=== PATIENT | male | born 1945 | race Caucasian/White ===

== ENCOUNTER 2016-10-22 15:16 | Emergency (ER) | payer MEDICARE ==
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
--- NOTE | 2016-10-22 16:02 | RADIOLOGY REPORT (SQ) ---
EXAM DESCRIPTION: CHEST SINGLE VIEW COMPLETED DATE/TIME: 10/22/2016 3:52 pm REASON FOR STUDY: sob COMPARISON: 03/08/2014 EXAM PARAMETERS: NUMBER OF VIEWS: One view. TECHNIQUE: Single frontal radiographic view of the chest acquired. RADIATION DOSE: NA LIMITATIONS: None. FINDINGS: LUNGS AND PLEURA: A limited infiltrate cannot be excluded in the right base. MEDIASTINUM AND HILAR STRUCTURES: No masses. Contour normal. HEART AND VASCULAR STRUCTURES: Heart normal in size. Normal vasculature. BONES: No acute findings. HARDWARE: None in the chest. OTHER: No other significant finding. IMPRESSION: Cannot exclude limited infiltrate in the right base. Is there a history of bronchiectas is? TECHNICAL DOCUMENTATION: JOB ID: [id number]
[2016-10-22 16:56] LABS: ABSOLUTE LYMPHOCYTES (AUTO) 1.4 10^3/uL (0.5-4.7); ABSOLUTE MONOCYTES (AUTO) 0.5 10^3/uL (0.1-1.4); BASOPHILS % (AUTO) 0.4 % (0-2); EOSINOPHILS % (AUTO) 0.2 % (0-6); HEMATOCRIT 42.5 % (37.9-51.0); HEMOGLOBIN 14.7 g/dL (13.5-17.0); HGB HCT DIFFERENCE 1.6; LYMPHOCYTES % (AUTO) 13.8 % (13-45); MEAN CORPUSCULAR HEMOGLOBIN 31.4 pg (27.0-33.4); MEAN CORPUSCULAR HGB CONC 34.5 g/dL (32.0-36.0); MEAN CORPUSCULAR VOLUME 91 fl (80-97); MONOCYTES % (AUTO) 5.3 % (3-13); RED BLOOD COUNT 4.67 10^6/uL (4.35-5.55); RED CELL DISTRIBUTION WIDTH 14.1 % (11.5-14.0); SEGMENTED NEUTROPHILS % (AUTO) 80.3 % (42-78)
[2016-10-22 16:59] LABS: VENOUS BLOOD BASE EXCESS 1.6 mmol/L; VENOUS BLOOD HCO3 27.4 mmol/L (20-32); VENOUS BLOOD PCO2 47.2 mmHg (35-63); VENOUS BLOOD PH 7.38 (7.30-7.42)
[2016-10-22 17:02] LABS: PROTHROMBIN TIME 13.1 SEC (11.4-15.4)
[2016-10-22 17:17] LABS: ALANINE AMINOTRANSFERASE 23 U/L (21-72); ALKALINE PHOSPHATASE 86 U/L (38-126); ANION GAP 9 (5-19); ASPARTATE AMINO TRANSFERASE 19 U/L (17-59); BILIRUBIN,DIRECT 0.3 mg/dL (0.0-0.4); BILIRUBIN,TOTAL 0.6 mg/dL (0.2-1.3); BLOOD UREA NITROGEN 16 mg/dL (7-20); CALCIUM 9.4 mg/dL (8.4-10.2); CARBON DIOXIDE 26 mmol/L (22-30); CHLORIDE 104 mmol/L (98-107); CREATINE KINASE 127 U/L (55-170); CREATININE RESULT 0.92 mg/dL (0.52-1.25); GLUCOSE 111 mg/dL (75-110); POTASSIUM 4.2 mmol/L (3.6-5.0); SODIUM 138.7 mmol/L (137-145); TOTAL PROTEIN 6.8 g/dL (6.3-8.2)
--- NOTE | 2016-10-22 17:17 | RADIOLOGY REPORT (SQ) ---
EXAM DESCRIPTION: CT HEAD WITHOUT COMPLETED DATE/TIME: 10/22/2016 5:05 pm REASON FOR STUDY: ams COMPARISON: 10/18/2012 TECHNIQUE: Axial images acquired through the brain without intravenous contrast. Images reviewed wi th bone, brain and subdural windows. Images stored on PACS. All CT scanners at this facility use dose modulation, iterative reconstruction, and/or weight based d osing when appropriate to reduce radiation dose to as low as reasonably achievable (ALARA). [facility]: Dose Right [facility]: CareDose [facility]: Dose Right [facility]: Teradose 4D [facility]: Smart [employer] RADIATION DOSE: Up-to-date CT equipment and radiation dose reduction techniques were employed. CTDIv ol: 64.6 mGy. DLP: 1163 mGy-cm. mGy. LIMITATIONS: None. FINDINGS: VENTRICLES: Prominent. CEREBRUM: No masses. No hemorrhage. No midline shift. Areas of low density in the white matter mos t likely due to chronic micro-vascular ischemic change. No evidence for acute infarction. CEREBELLUM: No masses. No hemorrhage. No alteration of density. No evidence for acute infarction. EXTRAAXIAL SPACES: Mild age-related involutional change. No fluid collections. No masses. ORBITS AND GLOBE: No intra- or extraconal masses. Normal contour of globe without masses. CALVARIUM: No fracture. PARANASAL SINUSES: No fluid or mucosal thickening. SOFT TISSUES: No mass or hematoma. OTHER: No other significant finding. IMPRESSION: MILD CHRONIC CHANGES OF ATROPHY AND MICROVASCULAR ISCHEMIA. NO ACUTE PROCESS. TECHNICAL DOCUMENTATION: JOB ID: [id number] Quality ID # [id number]: Final reports with documentation of one or more dose reduction techniques (e.g., Au tomated exposure control, adjustment of the mA and/or kV according to patient size, use of iterative reconstruction technique) 2010 [employer] All Rights Reserved
[2016-10-22 17:28] LABS: CREATINE KINASE MB 2.04 ng/mL (<4.55)
[2016-10-22 17:31] LABS: TROPONIN I < 0.012 ng/mL
[2016-10-22 18:18] LABS: APPEARANCE,URINE CLEAR; BILIRUBIN,URINE NEGATIVE (NEGATIVE); GLUCOSE, URINE NEGATIVE (NEGATIVE); KETONES,URINE NEGATIVE (NEGATIVE); LEUKOCYTE ESTERASE,URINE NEGATIVE (NEGATIVE); NITRITE,URINE NEGATIVE (NEGATIVE); PROTEIN,URINE 30 mg/dL (NEGATIVE); UROBILINOGEN,URINE NEGATIVE mg/dL (<2.0)
--- NOTE | 2016-10-22 19:05 | EKG REPORT ---
SEVERITY:- ABNORMAL ECG - SINUS RHYTHM FIRST DEGREE AV BLOCK : Confirmed by: Domingo Ballard MD 22-Oct-2016 19:04:21
[2016-10-22 20:28] VITALS: BP 145/80
== END 2016-10-22 20:28 | disposition home or self-care (01) ==
LOC: ER 15:16
DX: R53.1 Weakness (principal); R40.0 Somnolence; R53.81 Other malaise; I10 Essential (primary) hypertension; J44.9 Chronic obstructive pulmonary disease, unspecified; F17.200 Nicotine dependence, unspecified, uncomplicated
CPT/HCPCS: 36415; 70450; 71010; 80053; 81001; 82550; 82553; 82803; 83605; 84484; 85025; 85610; 87040; 87086; 93005; 93010; 99285

== ENCOUNTER 2016-11-26 15:30 | Inpatient (IN) | payer OTHER, MEDICARE ==
[2016-11-26 16:24] LABS: ABSOLUTE LYMPHOCYTES (AUTO) 1.1 10^3/uL (0.5-4.7); ABSOLUTE MONOCYTES (AUTO) 0.9 10^3/uL (0.1-1.4); BASOPHILS % (AUTO) 0.3 % (0-2); EOSINOPHILS % (AUTO) 0.3 % (0-6); HEMATOCRIT 43.6 % (37.9-51.0); HEMOGLOBIN 15.3 g/dL (13.5-17.0); HGB HCT DIFFERENCE 2.3; LYMPHOCYTES % (AUTO) 8.6 % (13-45); MEAN CORPUSCULAR HEMOGLOBIN 32.1 pg (27.0-33.4); MEAN CORPUSCULAR VOLUME 92 fl (80-97); MONOCYTES % (AUTO) 7.2 % (3-13); RED BLOOD COUNT 4.76 10^6/uL (4.35-5.55); RED CELL DISTRIBUTION WIDTH 13.9 % (11.5-14.0); SEGMENTED NEUTROPHILS % (AUTO) 83.6 % (42-78); WHITE BLOOD COUNT 13.2 10^3/uL (4.0-10.5)
[2016-11-26 16:42] LABS: VENOUS BLOOD BASE EXCESS 2.2 mmol/L; VENOUS BLOOD HCO3 28.7 mmol/L (20-32); VENOUS BLOOD PCO2 51.7 mmHg (35-63); VENOUS BLOOD PH 7.36 (7.30-7.42)
[2016-11-26 16:46] LABS: ALANINE AMINOTRANSFERASE 39 U/L (21-72); ALBUMIN 4.1 g/dL (3.5-5.0); ALKALINE PHOSPHATASE 94 U/L (38-126); ANION GAP 9 (5-19); ASPARTATE AMINO TRANSFERASE 72 U/L (17-59); BILIRUBIN,DIRECT 0.4 mg/dL (0.0-0.4); BILIRUBIN,TOTAL 0.7 mg/dL (0.2-1.3); BLOOD UREA NITROGEN 23 mg/dL (7-20); CALCIUM 9.4 mg/dL (8.4-10.2); CARBON DIOXIDE 29 mmol/L (22-30); CHLORIDE 101 mmol/L (98-107); CREATININE RESULT 1.14 mg/dL (0.52-1.25); GLUCOSE 128 mg/dL (75-110); POTASSIUM 4.1 mmol/L (3.6-5.0); SODIUM 138.9 mmol/L (137-145); TOTAL PROTEIN 6.8 g/dL (6.3-8.2)
[2016-11-26 17:01] LABS: TROPONIN I < 0.012 ng/mL
[2016-11-26 17:06] LABS: CREATINE KINASE 3954 U/L (55-170)
--- NOTE | 2016-11-26 17:19 | RADIOLOGY REPORT (SQ) ---
EXAM DESCRIPTION: CHEST PA/LAT COMPLETED DATE/TIME: 11/26/2016 5:01 pm REASON FOR STUDY: Hypoxia, cough, congestion COMPARISON: 10/22/2016 EXAM PARAMETERS: NUMBER OF VIEWS: two views TECHNIQUE: Digital Frontal and Lateral radiographic views of the chest acquired. RADIATION DOSE: NA LIMITATIONS: none FINDINGS: LUNGS AND PLEURA: No opacities, masses or pneumothorax. No pleural effusion. MEDIASTINUM AND HILAR STRUCTURES: No masses or contour abnormalities. HEART AND VASCULAR STRUCTURES: Heart normal size. No evidence for failure. BONES: No acute findings. HARDWARE: None in the chest. OTHER: No other significant finding. IMPRESSION: NO SIGNIFICANT RADIOGRAPHIC FINDING IN THE CHEST. TECHNICAL DOCUMENTATION: JOB ID: [id number] [employer]- All Rights Reserved
[2016-11-26 18:29] LABS: APPEARANCE,URINE SLIGHTLY-CLOUDY; BILIRUBIN,URINE NEGATIVE (NEGATIVE); GLUCOSE, URINE NEGATIVE (NEGATIVE); KETONES,URINE NEGATIVE (NEGATIVE); LEUKOCYTE ESTERASE,URINE NEGATIVE (NEGATIVE); NITRITE,URINE NEGATIVE (NEGATIVE); PROTEIN,URINE 30 mg/dL (NEGATIVE); URINE SPECIFIC GRAVITY 1.021
[2016-11-26 18:42] LABS: URINE BARBITURATES SCREEN NEGATIVE; URINE METHADONE SCREEN NEGATIVE; URINE OPIATES LOW NEGATIVE; URINE PHENCYCLIDINE SCREEN NEGATIVE
--- NOTE | 2016-11-26 19:29 | EKG REPORT ---
SEVERITY:- BORDERLINE ECG - SINUS RHYTHM BORDERLINE T ABNORMALITIES, DIFFUSE LEADS : Confirmed by: Domingo Blalard MD 26-Nov-2016 19:28:37
[2016-11-26] MEDS ORDERED: NORMAL SALINE 1000 ML 1,000 ML IV ONE (19:51)
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
[2016-11-26 21:04] LABS: ADD ON TESTING BLD IN LAB ACKNOWLEDGE
--- NOTE | 2016-11-26 21:47 | RADIOLOGY REPORT (SQ) ---
EXAM DESCRIPTION: CT HEAD WITHOUT COMPLETED DATE/TIME: 11/26/2016 9:00 pm REASON FOR STUDY: ams COMPARISON: 10/22/2016 TECHNIQUE: Axial images acquired through the brain without intravenous contrast. Images reviewed wi th bone, brain and subdural windows. Images stored on PACS. All CT scanners at this facility use dose modulation, iterative reconstruction, and/or weight based d osing when appropriate to reduce radiation dose to as low as reasonably achievable (ALARA). [facility]: Dose Right [facility]: CareDose [facility]: Dose Right [facility]: Teradose 4D [facility]: Smart [email or web address] RADIATION DOSE: Up-to-date CT equipment and radiation dose reduction techniques were employed. CTDIv ol: 64.6 mGy. DLP: 1292 mGy-cm. mGy. LIMITATIONS: None. FINDINGS: VENTRICLES: Prominent. CEREBRUM: No masses. No hemorrhage. No midline shift. Areas of low density in the white matter mos t likely due to chronic micro-vascular ischemic change. No evidence for acute infarction. CEREBELLUM: No masses. No hemorrhage. No alteration of density. No evidence for acute infarction. EXTRAAXIAL SPACES: Mild age-related involutional change. No fluid collections. No masses. ORBITS AND GLOBE: No intra- or extraconal masses. Normal contour of globe without masses. CALVARIUM: No fracture. PARANASAL SINUSES: No fluid or mucosal thickening. SOFT TISSUES: No mass or hematoma. OTHER: No other significant finding. IMPRESSION: MILD CHRONIC CHANGES OF ATROPHY AND MICROVASCULAR ISCHEMIA. NO ACUTE PROCESS. TECHNICAL DOCUMENTATION: JOB ID: [id number] Quality ID # [id number]: Final reports with documentation of one or more dose reduction techniques (e.g., Au tomated exposure control, adjustment of the mA and/or kV according to patient size, use of iterative reconstruction technique) 2010 [employer]- All Rights Reserved
[2016-11-26 22:38] LABS: ALCOHOL < 10 mg/dL (NONE DETECTED); MAGNESIUM 1.9 mg/dL (1.6-2.3)
[2016-11-26 22:53] LABS: TROPONIN I < 0.012 ng/mL
[2016-11-26] MEDS ORDERED: NORMAL SALINE 1000 ML 1,000 ML IV PRN (22:53)
[2016-11-26] MEDS ORDERED: GUAIFENESIN SYRP 200 MG/10 ML UDC PO PRN (22:54)
[2016-11-26] MEDS ORDERED: IPRATROPIUM/ALBUTEROL 0.5-2.5 MG/3 ML AMPUL NEB PRN (22:54)
[2016-11-26] MEDS ORDERED: ACETAMINOPHEN 325 MG TABLET PO PRN (22:58)
[2016-11-26] MEDS ORDERED: PROMETHAZINE HCL 25 MG TABLET PO PRN (22:58)
[2016-11-26 23:11] LABS: PROTHROMBIN TIME 13.1 SEC (11.4-15.4)
[2016-11-26 23:12] LABS: PARTIAL THROMBOPLASTIN TIME 33.5 SEC (23.5-35.8)
--- NOTE | 2016-11-26 23:16 | PDOC H&P ---
History of Present Illness Admission Date/PCP: 11/26/16 21:00 Patient complains of: Altered mental status, hypoxia History of Present Illness: KOREY POOLE is a 71 year old male with underlying COPD, chronic 2 pack-a-day smoker, anxiety and depression, without suicidal or homicidal ideation, posttraumatic stress disorder, schizoid personality, hypertension, hyperlipidemia, arthritis, prior stroke without residual aftereffects, who, along with his , are both residents of the [facility], brought to the emergency room by EMS after he was found at the facility minimally responsive to their efforts to arouse him. Upon EMS arrival, pinpoint pupils, with O2 saturation of 80%. Was given a total of 3 mg of IV Narcan; uncertain response to this, although he remained rather somnolent. However, has been more awake and alert since coming to the emergency room. According to emergency room physician, speech was initially noted to be somewhat slurred. Patient has been discussed with emergency room physician who evaluated the patient. Patient is oriented to the fact that he is in a building in [place], but not specifically which building. Is aware is 2016. However, was not certain why he was in the emergency room. Occasional nausea; one episode of vomiting earlier today. Denies pain. No diarrhea or dysuria, fever or chills. Other than brief mild hypoxia at 88% in our emergency room, oxygen saturations have been 90% or above on room air. Was seen in our emergency room October 22 of this year for somewhat similar complaints, but not specifically with the hypoxia. Was discharged from the emergency room after workup here. Dictation via voice recognition software. Laboratory results are listed in [employer] and are reviewed. X-ray summary results are listed below, with full report(s) reviewed. . EKG reviewed and compared to a prior tracing from October 22 of this year. Social history/personal habits: . He and both reside at the [facility]. Has children. Retired. Tobacco use as noted above. No alcohol use for many years. Denies illicit drug use. No known drug allergies. Home medications initially autopopulated into [employer] may not accurately reflect patient's true medications, dosages, and/or frequencies. 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 Unfortunately, patient not certain of medications/dosages/frequencies. REVIEW OF SYSTEMS: Constitutional: No fever or chills. Eyes: Reading glasses. ENT: No swallowing problems or complaints. Denies hearing loss. Pulmonary: See history and present illness. Cardiovascular: No current complaints, including chest pain. Gastrointestinal: See history and present illness. Skin: No current complaints, including rashes. Hematologic: Easy bruising. Neurologic: See history and present illness. Musculoskeletal: Joint pain from arthritis. Psychiatric: Mild anxiety and depression. Denies suicidal or homicidal ideation. Endocrine: No current complaints, including polyuria. Genitourinary: No current complaints, including dysuria. PHYSICAL EXAMINATION: 6 feet 1 inches tall. 90.7 kg. BMI 26.4 kg/m. Blood pressure 152/90. Pulse 75 and regular. 92% saturation on room air. Respirations are 13 and unlabored. Temperature 98.4. Slightly overweight somewhat disheveled chronically ill-appearing male who appears approximately his stated age. Appears somewhat fatigued, but otherwise awake alert and cooperative. Mildly anxious, without agitation. Was noted to be slightly unsteady on his feet when arising from a seated position to standing position to void in a urinal. Assisted back to supine position in his emergency room bed and strongly encouraged not to get out of bed without notifying staff to avoid a fall with injury. Skin is warm and dry. No grossly obvious evidence of rash in areas of skin examined. No subcutaneous nodules palpated. ENT: Hearing grossly normal to normal conversation. Tongue midline on protrusion pink and slightly tacky. Eyes: No scleral icterus. Pupils equal and reactive to light at 4 mm. [place] conjunctivae. No raccoon eyes. Neck is supple and nontender to gentle active range of motion and palpation. Midline trachea. No palpable thyroid nodule mass enlargement or tenderness. Lymphatic: No palpable cervical or clavicular nodes. Neck and lymphatic exams limited by patient body habitus. Psychiatric: Reasonable insight into chronic medical issues. Oriented to time. See history and present illness. Lungs: Auscultation reveals clear and equal breath sounds bilaterally. No use of accessory respiratory muscles. Cardiovascular: Heart regular rate and rhythm, without gallop murmur or rub. No carotid or abdominal aortic bruits. No ankle or pedal edema. Palpable dorsalis pedis pulses. Abdomen:soft slightly distended nontender with positive bowel sounds. Unable to adequately evaluate abdomen for masses or organomegaly due to distention. Extremities: Hands and feet are warm and dry. No calf tenderness to compression. No grossly obvious visual evidence of calf swelling. Gentle manipulation of upper and lower extremities fails to reveal any obvious evidence of injury or instability to involved major joints. Neurologic: Cranial Nerves II through XII are grossly intact. Light touch intact at face, upper and lower extremities. Motor function of major muscle groups upper and lower extremities 5 over 5 and symmetric. Patellar reflexes absent. Absent Babinski. No nystagmus. Past Medical History Cardiac Medical History: Reports: Hyperlipidema, Hypertension Denies: Atrial Fibrillation, Congestive Heart Failure, Coronary Artery Disease, Myocardial Infarction, Peripheral Vascular Disease, Pulmonary Embolism , Heart Murmur Pulmonary Medical History: Reports: Chronic Obstructive Pulmonary Disease (COPD) Denies: Asthma, Bronchitis, Pneumonia, Respiratory Failure, Sleep Apnea, Tuberculosis EENT Medical History: Reports: Eyes - Glasses Denies: Ears, Throat Neurological Medical History: Reports: Ischemic CVA, Other - Stroke without aftereffects. Denies: Hemorrhagic CVA, Seizures Endocrine Medical History: Denies: Diabetes Mellitus Type 1, Diabetes Mellitus Type 2, Hyperthyroidism, Hypothyroidism Renal/ Medical History: Reports: Nephrolithiasis, Other - Distant history of nephrolithiasis Denies: End Stage Renal Disease Malignancy Medical History: Denies: Lung Cancer GI Medical History: Denies: Cirrhosis, Gastroesophageal Reflux Disease, Hepatitis, Hiatal Hernia , Peptic Ulcer Disease Musculoskeltal Medical History: Reports: Arthritis Denies: Fibromyalgia Skin Medical History: Reports: None Psychiatric Medical History: Reports: Depression, General Anxiety Disorder, Post Traumatic Stress Disorder, Tobacco Dependency, Other - Schizoid personality Denies: Alcohol Dependency, Bipolar Disorder, Dementia, Substance Abuse Hematology: Reports: Other - Easy bruising Infectious Medical History: Denies: Hepatitis B, Hepatitis C Past Surgical History Past Surgical History: Reports: None Social History Information Source: Patient, Emergency Med Personnel, [facility] Records Lives with: Intermediate - [facility] Smoking Status: Current Every Day Smoker Frequency of Alcohol Use: None Hx Recreational Drug Use: No Drugs: None Hx Prescription Drug Abuse: Yes - hydrocodone - Advance Directive Resuscitation Status: Full Code Surrogate healthcare decision maker:: Family History Family History: Reviewed & Not Pertinent Parental Family History Reviewed: Yes - Both parents of mesothelioma Children Family History Reviewed: Yes - Healthy Sibling(s) Family History Reviewed.: Yes - Healthy Medication/Allergy Home Medications: Amlodipine Besylate [Norvasc 5 mg Tablet] 10 mg PO DAILY 08/03/12 Galantamine HBr [Razadyne] 8 mg PO QHS 01/01/13 Hydroxyzine Pamoate [Vistaril 50 mg Capsule] 50 mg PO QHS PRN 01/01/13 Methocarbamol [Robaxin 500 mg Tablet] 250 mg PO Q8HP PRN 01/01/13 Nitroglycerin [Nitrostat 0.4 mg (1/150 Gr) Tabs 25/Bottle] 1 tab SL Q5MP PRN Triamterene/Hydrochlorothiazid [Triamterene-Hctz 37.5-25 mg Tb] 1 each PO MOWEFR 01/01/13 Citalopram Hydrobromide [Celexa 20 mg Tablet] 2 tab PO DAILY 03/02/13 Omeprazole 1 tab PO DAILY 03/02/13 Pravastatin Sodium [Pravachol] 1 tab PO DAILY 03/02/13 Trazodone HCl [Desyrel 50 mg Tablet] 1 tab PO QHS 03/02/13 Haloperidol [Haldol 0.5 mg Tablet] 0.5 mg PO Q12 05/23/14 Ibuprofen [Motrin 800 mg Tablet] 800 mg PO Q8H 05/23/14 Polyvinyl Alcohol [Liquid Tears] 1 drop OU Q4HP PRN 05/23/14 Albuterol Sulfate [Proair HFA] 2 puff IH Q4HP PRN 11/27/16 Gabapentin 300 mg PO Q8 11/27/16 Hydrocodone Bit/Acetaminophen [Hydrocodon-Acetaminophen 5-325] 1 tab PO Q12HP PRN 11/27/16 Magnesium Hydroxide [Milk of Magnesia 30 ml Udcup] 30 ml PO Q12HP PRN 11/27/16 Polyethylene Glycol 3350 [Miralax Powder 17 gm/Packet] 1 packet PO Q2D 11/27/16 Aspirin 81 mg PO DAILY #30 tab.chew 12/03/16 Nicotine [Nicoderm 21 mg/24 Hr Transderm Patch] 1 each TD DAILYP PRN patch.td24 12/03/16 Prednisone [Deltasone 20 mg Tablet] 10 mg PO DAILY #39 tablet 12/03/16 Rivaroxaban [Xarelto] 20 mg PO DAILY #30 tablet 12/03/16 Allergies/Adverse Reactions: No Known Allergies Allergy (Verified 11/12/13 11:25) Physical Exam Vital Signs: Temp Pulse Resp BP Pulse Ox 98.4 F 16 144/117 H 93 11/26/16 15:42 11/26/16 22:22 11/26/16 22:22 11/26/16 22:22 Results Laboratory Results: 11/26/16 21:45 Magnesium 1.9 11/26/16 11/26/16 21:45 21:45 Creatine Kinase 3029 H CK-MB (CK-2) 14.90 H Troponin I < 0.012 Impressions: Head CT 11/26/16 00:00 IMPRESSION: MILD CHRONIC CHANGES OF ATROPHY AND MICROVASCULAR ISCHEMIA. NO ACUTE PROCESS. Chest X-Ray 11/26/16 16:13 IMPRESSION: NO SIGNIFICANT RADIOGRAPHIC FINDING IN THE CHEST. Assessment & Plan - Diagnosis (1) Acute encephalopathy Is this a current diagnosis for this admission?: Yes Plan: Possibly due to underlying hypoxia. Seems to have mostly resolved. Follow clinically. (2) Elevated d-dimer Is this a current diagnosis for this admission?: Yes Plan: VQ scan. (3) Hypoxemia Is this a current diagnosis for this admission?: Yes (4) Rhabdomyolysis Qualifiers: Rhabdomyolysis type: non-traumatic Qualified Code(s): M62.82 - Rhabdomyolysis Is this a current diagnosis for this admission?: Yes Plan: Possibly due to patient lying around a good bit at the [facility]. Partial resolution with IV fluids; will continue same, with serial CPK. I have strongly encouraged patient not to get out of bed without notifying staff , to avoid a fall with injury. Knee high SCDs for DVT prophylaxis, along with subcutaneous Lovenox. Impression and plans were discussed with who concurs. Time spent in evaluation and management of patient: 70 minutes. (5) Thrombocytopenia Is this a current diagnosis for this admission?: Yes Plan: Mild. Follow-up CBC with differential. (6) Tobacco dependency Is this a current diagnosis for this admission?: Yes Plan: As needed nicotine patch. (7) COPD (chronic obstructive pulmonary disease) Qualifiers: COPD type: unspecified COPD Qualified Code(s): J44.9 - Chronic obstructive pulmonary disease, unspecified Is this a current diagnosis for this admission?: Yes Plan: No outward evidence of acute exacerbation of same. Resume home medications as appropriate once these have been determined and reviewed. - Time Time Spent: Greater than 70 Minutes Anticipated discharge: Other Within: within 72 hours - Inpatient Certification Based on my medical assessment, after consideration of the patient's comorbidities, presenting symptoms, or acuity I expect that the services needed warrant INPATIENT care.: Yes I certify that my determination is in accordance with my understanding of Medicare's requirements for reasonable and necessary INPATIENT services [42 CFR 412.3e].: Yes Medical Necessity: Need Close Monitoring Due to Risk of Patient Decompensation, Need For IV Fluids, Need For Continuous Telemetry Monitoring, Risk of Complication if Not Cared For in Hospital Post Hospital Care: D/C or Transfer Summary
--- NOTE | 2016-11-27 00:43 | RADIOLOGY REPORT (SQ) ---
EXAM DESCRIPTION: NM LUNG VENT/PERF SCAN COMPLETED DATE/TIME: 11/27/2016 12:25 am REASON FOR STUDY: HYPOXIA D69.6 THROMBOCYTOPENIA, UNSPECIFIED COMPARISON: Chest x-ray 11/26/2016 RADIONUCLIDE AND DOSE: 5.31 millicuries TC-99m MAA Intravenous 27.9 millicuries TC-99m DTPA Inhaled aerosol TECHNIQUE: 2 views of the lungs acquired post ventilation of DTPA aerosol. 8 views of the lungs acq uired following injection of MAA. LIMITATIONS: Only two ventilation images acquired per patient's request. FINDINGS: VENTILATION: Heterogeneous distribution of DTPA aerosol during ventilatory phase. PERFUSION: There are bilateral perfusion defects. IMPRESSION: Limited ventilation study. Bilateral perfusion defects, high probability for pulmonary emboli. Evaluation with CT angiogram recommended. TECHNICAL DOCUMENTATION: JOB ID: [id number] [place]-64 2010 [employer]- All Rights Reserved
[2016-11-27] MEDS ORDERED: NORMAL SALINE 1000 ML 500 ML IV ONE (01:45)
--- NOTE | 2016-11-27 02:54 | RADIOLOGY REPORT (SQ) ---
EXAM DESCRIPTION: CTA CHEST COMPLETED DATE/TIME: 11/27/2016 2:30 am REASON FOR STUDY: abn vq scan--R/O PE D69.6 THROMBOCYTOPENIA, UNSPECIFIED COMPARISON: Chest x-ray 11/26/2016. V/Q scan 11/27/2016. CT angiogram chest 08/28/2012. CT abdomen and pelvis 11/27/2016. TECHNIQUE: CT scan of the chest performed using helical scanning technique with dynamic intravenous contrast injection. Images reviewed with lung, soft tissue and bone windows. Reconstructed coronal and sagittal MPR images reviewed. Additional 3 dimensional post-processing performed to develop Maximal Intensity Projection images (AK P). All images stored on PACS. All CT scanners at this facility use dose modulation, iterative reconstruction, and/or weight based d osing when appropriate to reduce radiation dose to as low as reasonably achievable (ALARA). [facility]: Dose Right [facility]: CareDose [facility]: Dose Right [facility]: Teradose 4D [facility]: [employer] CONTRAST TYPE AND DOSE: contrast/concentration: Isovue 370.00 mg/ml; Total Contrast Delivered: 62.0 ml; Total Saline Delivered: 80.0 ml RENAL FUNCTION: GFR > 60. RADIATION DOSE: . LIMITATIONS: None. FINDINGS: LUNGS AND PLEURA: Mild atelectasis at the bilateral lung bases. No consolidation, pleural effusion or pneumothorax. AORTA AND GREAT VESSELS: There is 4.0 cm fusiform aneurysmal dilation of the ascending thoracic aorta . No CT evidence for acute dissection.Irregular intramural thrombus with penetrating ulcerations at the aortic arch. HEART: No pericardial effusion. Scattered coronary artery calcifications. PULMONARY ARTERIES: No emboli visualized in the main pulmonary arteries or the segmental branches. HILAR AND MEDIASTINAL STRUCTURES: No identified masses or abnormal nodes. HARDWARE: None in the chest. UPPER ABDOMEN: See separate report of the CT of the abdomen. THYROID AND OTHER SOFT TISSUES: There is a 1.3 cm hypodense nodule at the left thyroid lobe. BONES: Multilevel degenerative changes in the spine. 3D MIPS: Confirm above findings. IMPRESSION: No pulmonary emboli. Mild bibasilar atelectasis. 4.0 cm ascending thoracic aortic aneurysm. Irregular intramural thrombus with penetrating ulceration s at the aortic arch. 1.3 cm hypodense nodule at the left thyroid lobe. This can be better evaluated with dedicated ultras ound. COMMENT: Quality ID # [id number]: Final reports with documentation of one or more dose reduction techniques (e.g., Automated exposure control, adjustment of the mA and/or kV according to patient size, use of iterative reconstruction technique) TECHNICAL DOCUMENTATION: JOB ID: [id number] [place]-64 2010 [employer]- All Rights Reserved
--- NOTE | 2016-11-27 03:13 | RADIOLOGY REPORT (SQ) ---
EXAM DESCRIPTION: CTA ABDOMEN/PELVIS W WO COMPLETED DATE/TIME: 11/27/2016 2:30 am REASON FOR STUDY: AAA D69.6 THROMBOCYTOPENIA, UNSPECIFIED COMPARISON: CT abdomen and pelvis 08/15/2012, CT angiogram chest 11/27/2016. TECHNIQUE: CT scan of the abdominal aorta performed with and without intravenous contrast using addy jennifer scanning technique with dynamic intravenous contrast injection. Images reviewed with lung, soft t issue, and bone windows. Reconstructed coronal and sagittal MPR images reviewed. All images stored on PACS. Advanced 3D imaging as volume rendering, MIPS, SSD performed? yes All CT scanners at this facility use dose modulation, iterative reconstruction, and/or weight based d osing when appropriate to reduce radiation dose to as low as reasonably achievable (ALARA). [facility]: Dose Right [facility]: CareDose [facility]: Dose Right [facility]: Teradose 4D [facility]: [employer] CONTRAST TYPE AND DOSE: 62 mL Isovue 370- low osmolar. RENAL FUNCTION: GFR > 60. LIMITATIONS: None. FINDINGS: NON-CONTRASTED IMAGING: Nonobstructing 6 mm (615 Hounsfield units)calculus at the inferior pole of the left kidney. POST-CONTRAST IMAGING: AORTA AND VESSELS: Atherosclerotic calcifications within the abdominal aorta and its branches. Infra renal abdominal aortic aneurysm with interval increase in the intramural thrombus measuring 4.4 x 4.4 cm, previously measured 4 x [address] evidence for acute dissection. No periaortic inflammatory changes or fluid collections. Patent celiac artery, SMA and bilateral renal arteries. Intramural th rombus at the proximal SMA with luminal narrowing. LUNG BASES: Please see CT angiogram chest performed same date. LIVER: Normal size. No masses or dilated ducts. SPLEEN: Normal size. PANCREAS: No significant calcifications. No adjacent inflammation or peripancreatic fluid collections . Pancreatic duct not dilated. GALLBLADDER: No identified stones by CT criteria. No inflammatory changes to suggest cholecystitis. ADRENAL GLANDS: No significant masses or asymmetry. RIGHT KIDNEY AND URETER: There is a 2.0 cm cyst. No hydronephrosis. LEFT KIDNEY AND URETER: No hydronephrosis. RETROPERITONEUM: No retroperitoneal hemorrhage or masses. BOWEL AND PERITONEAL CAVITY: No dilated bowel loops or inflammatory changes. No free fluid or periton eal masses. APPENDIX: Normal. PELVIS: The urinary bladder is distended. No pelvic mass. No free fluid. ABDOMINAL WALL: Small fat containing left inguinal hernia. Small fat containing umbilical hernia. BONY STRUCTURES: Multilevel degenerative changes in the spine. 3-D IMAGING: Confirms the above findings. IMPRESSION: 4.4 x 4.4 cm infrarenal abdominal aortic aneurysm, mildly increased in size in the inter tamika. No CT evidence for acute dissection. Intramural thrombus at the proximal SMA with luminal narr owing. Nonobstructing left nephrolithiasis. TECHNICAL DOCUMENTATION: JOB ID: [id number] [facility] Quality ID # [id number]: Final reports with documentation of one or more dose reduction techniques (e.g., Au tomated exposure control, adjustment of the mA and/or kV according to patient size, use of iterative reconstruction technique) 2010 [employer]- All Rights Reserved
[2016-11-27 04:51] LABS: ABSOLUTE EOSINOPHILS # (AUTO) 0.1 10^3/uL (0.0-0.6); ABSOLUTE LYMPHOCYTES (AUTO) 3.4 10^3/uL (0.5-4.7); ABSOLUTE MONOCYTES (AUTO) 0.9 10^3/uL (0.1-1.4); ABSOLUTE NEUT (AUTO) 5.1 10^3/uL (1.7-8.2); BASOPHILS % (AUTO) 0.3 % (0-2); EOSINOPHILS % (AUTO) 1.1 % (0-6); HEMATOCRIT 40.8 % (37.9-51.0); HGB HCT DIFFERENCE 1.2; LYMPHOCYTES % (AUTO) 35.8 % (13-45); MEAN CORPUSCULAR HEMOGLOBIN 31.6 pg (27.0-33.4); MEAN CORPUSCULAR HGB CONC 34.4 g/dL (32.0-36.0); MEAN CORPUSCULAR VOLUME 92 fl (80-97); RED BLOOD COUNT 4.44 10^6/uL (4.35-5.55); RED CELL DISTRIBUTION WIDTH 13.8 % (11.5-14.0); SEGMENTED NEUTROPHILS % (AUTO) 53.8 % (42-78); WHITE BLOOD COUNT 9.6 10^3/uL (4.0-10.5)
--- NOTE | 2016-11-27 09:09 | RADIOLOGY REPORT (SQ) ---
EXAM DESCRIPTION: U/S THYROID/SFT TISS HD NECK COMPLETED DATE/TIME: 11/27/2016 8:38 am REASON FOR STUDY: THYROID NODULE D69.6 THROMBOCYTOPENIA, UNSPECIFIED COMPARISON: 11/27/2016 CT chest. TECHNIQUE: Dynamic and static geronimo-scale images acquired of the thyroid gland. Selected additional c olor/power Doppler images recorded. All images stored to PACS. LIMITATIONS: None. FINDINGS: RIGHT LOBE: 3.5 x 2.4 x 2.0 cm. Generally mildly heterogeneous in echo pattern. No cysti c or solid masses. LEFT LOBE: 3.8 x 2.0 x 2.5 cm. Generally mildly heterogeneous in echo pattern. Solid isoechoic roug hly circumscribed nodule in the left lobe corresponds with the CT abnormality. This measures 1.5 cm and is without any suspicious calcifications. ISTHMUS: Normal size. Homogeneous echotexture. No cystic or solid masses. OTHER: No other significant finding. IMPRESSION: Left lobe thyroid 1.5 cm solid nodule. No suspicious calcifications or clear indication for biopsy based on imaging features at this time. RECOMMENDATIONS FOR THYROID NODULES 1 CM OR LARGER Solitary nodules: Microcalcifications - FNA if 1 cm or greater. Solid or coarse calcification - FNA if 1.5 cm or greater. Mixed Solid/Cystic or Cystic with Mural Nodule - FNA if 2 cm or greater. None of the above but substantial growth since previous - FNA. Cystic with none of the above features and no significant growth - no FNA. Reference: Management of Thyroid Nodules Detected at [place]: Society of Radiologists in Ultrasound Consensus Stateme nt. Radiology 2005; 237:794-800 TECHNICAL DOCUMENTATION: JOB ID: [id number] [employer]- All Rights Reserved
[2016-11-27] MEDS ORDERED: HYDROXYZINE PAMOATE 50 MG CAPSULE PO PRN (09:42)
[2016-11-27] MEDS ORDERED: NITROGLYCERIN 0.4 MG/TAB 25 TAB/BOTTLE SL PRN (09:42)
[2016-11-27] MEDS ORDERED: AMLODIPINE BESYLATE 5 MG TABLET PO SCH (10:00)
[2016-11-27] MEDS ORDERED: (PENDING PHARMACY ID) (Omeprazole [Omeprazole] 1 TAB) PO SCH (10:00)
[2016-11-27] MEDS ORDERED: PRAVASTATIN SODIUM PO SCH (10:00)
[2016-11-27] MEDS ORDERED: CITALOPRAM HYDROBROMIDE 20 MG TABLET PO SCH (10:00)
[2016-11-27] MEDS: ENOXAPARIN SODIUM INJ 40 MG/0.4 ML DISP.SYRIN SUBCUT SCH (10:07)
[2016-11-27] MEDS: POLYETHYLENE GLYCOL 3350 POWDER 17 GM/1 PACKET PO SCH (10:33)
[2016-11-27] MEDS: AMLODIPINE BESYLATE 10 MG TABLET PO SCH (10:34)
[2016-11-27] MEDS: ASPIRIN 325 MG TABLET PO SCH (10:34)
[2016-11-27] MEDS: NICOTINE 21 MG/24 HR PATCH.TD24 TD PRN (10:34)
[2016-11-27] MEDS: HALOPERIDOL 0.5 MG TABLET PO SCH ×2 (10:35→22:15)
--- NOTE | 2016-11-27 10:43 | PROGRESS NOTE E ---
Progress Note NAME: KOREY POOLE : 1945 AGE: 71Y DATE: 11/27/2016 ROOM: 430 SUBJECTIVE: The patient is currently lying in bed. He states that he is more awake and alert than when he came in. The patient is able to answer questions appropriately, but is unable to provide any history as to why he came in. The patient denies any nausea, vomiting. No diarrhea, shortness of breath, dizziness, chest pain. No fever, chills. The patient has been afebrile. His blood pressure has been in a good range and the patient does not voice any other concerns at this time. REVIEW OF SYSTEMS: The rest of review of systems are negative. MEDICATIONS: Medications have been reviewed. OBJECTIVE: GENERAL: The patient is an 71-year-old male who is awake, alert and oriented to person, place, time, and situation. He is verbal, conversational, and just a little delayed. He does not appear to be in any acute distress. VITAL SIGNS FOLLOWS: Temperature 99.5, pulse 71, respirations 15, blood pressure 138/80, oxygen saturation is 92% on room air. SKIN: Warm and dry. No rash, not diaphoretic. HEENT: Pupils are pinpoint. Conjunctivae are pink. NECK: No JVP. CARDIOVASCULAR: Heart is regular. There is no murmur or rub. CHEST: Diminished, symmetrical, and unlabored. ABDOMEN: Soft, nontender, and nondistended. BACK: No CVA tenderness or sacral edema. EXTREMITIES: No clubbing or cyanosis. PSYCHIATRIC: Odd and unusual affect. DIAGNOSTICS: Lab values are as follows: Hematology obtained on 11/27/2016: WBC 9.6, hemoglobin 14.0, hematocrit 40.8, platelet count 144,000. Chemistry obtained on 11/26/2016: Sodium 138, potassium 4.1, chloride 101, carbon dioxide 29, BUN 23, creatinine 1.14, glucose 128, calcium 9.4, magnesium 1.9. IMPRESSION AND PLAN: 1. RHABDOMYOLYSIS. I feel this is due to inactivity according to the patient. We will continue to hydrate and we will repeat chemistry and follow. 2. POLYPHARMACY. We will conservatively resume the patient's home medications. 3. ACUTE ENCEPHALOPATHY. Most likely secondary to Number Two. It appears the patient is overall much improved. 4. ACUTE HYPOXEMIC RESPIRATORY FAILURE. Uncertain to the exact etiology of this, possibly due to the patient's polypharmacy, as well as tobacco dependency. We will follow. 5. TOBACCO DEPENDENCY. Spent 3 minutes discussing smoking cessation education. The patient declines any pharmacologic intervention at this time. However, we will add p.r.n. nicotine patch. 6. THROMBOCYTOPENIA. Relatively mild, we will follow. 7. CHRONIC OBSTRUCTIVE PULMONARY DISEASE. We will continue the patient's home medications. 8. LEUKOCYTOSIS. This improved with hydration. DISPOSITION: The patient is a DO NOT RESUSCITATE/DO NOT INTUBATE given his desire for a natural . Pending the patient's symptomatology and diagnostic findings, we will reevaluate in the a.m. Time spent on this followup including physical examination,patient education and review of previous and current records is 35 minutes. DICTATING PHYSICIAN: ROSA MARIA RODRIGUEZ NP [id number] PHY#: [id number] ID: [id number] JOB#: [id number] ACCT: [id number] cc: > MTDD
[2016-11-27] MEDS ORDERED: LANSOPRAZOLE 15 MG TAB.RAP.DR PO ONE (11:00)
[2016-11-27] MEDS ORDERED: CITALOPRAM HYDROBROMIDE 20 MG TABLET PO ONE (11:00)
[2016-11-27] MEDS: IPRATROPIUM/ALBUTEROL 0.5-2.5 MG/3 ML AMPUL NEB PRN ×2 (11:49→18:36)
[2016-11-27] MEDS: POLYVINYL ALCOHOL 1.4% OPH SOLN 15 ML OU SCH ×2 (13:23→17:18)
[2016-11-27] MEDS: IBUPROFEN 800 MG TABLET PO SCH ×2 (13:23→22:16)
[2016-11-27] MEDS ORDERED: TRAZODONE HCL 50 MG TABLET PO SCH (22:00)
[2016-11-27] MEDS: ATORVASTATIN CALCIUM 10 MG TABLET PO SCH (22:16)
[2016-11-27] MEDS: TRAZODONE HCL 50 MG TABLET PO SCH (22:16)
[2016-11-27] MEDS: GALANTAMINE HBR 4 MG TABLET PO SCH (22:16)
[2016-11-28] MEDS: IBUPROFEN 800 MG TABLET PO SCH ×3 (05:06→21:32)
[2016-11-28] MEDS: IPRATROPIUM/ALBUTEROL 0.5-2.5 MG/3 ML AMPUL NEB PRN ×2 (05:40→13:32)
[2016-11-28] MEDS: LANSOPRAZOLE 15 MG TAB.RAP.DR PO SCH (09:40)
[2016-11-28] MEDS: CITALOPRAM HYDROBROMIDE 20 MG TABLET PO SCH (09:40)
[2016-11-28] MEDS: HALOPERIDOL 0.5 MG TABLET PO SCH ×2 (09:40→21:32)
[2016-11-28] MEDS: ASPIRIN 325 MG TABLET PO SCH (09:40)
[2016-11-28] MEDS: POLYETHYLENE GLYCOL 3350 POWDER 17 GM/1 PACKET PO SCH (09:41)
[2016-11-28] MEDS: ENOXAPARIN SODIUM INJ 40 MG/0.4 ML DISP.SYRIN SUBCUT SCH (09:42)
[2016-11-28] MEDS: POLYVINYL ALCOHOL 1.4% OPH SOLN 15 ML OU SCH ×3 (09:44→17:10)
[2016-11-28] MEDS ORDERED: NORMAL SALINE 1000 ML 1,000 ML IV PRN (09:47)
--- NOTE | 2016-11-28 10:23 | PROGRESS NOTE E ---
Progress Note NAME: KOREY POOLE : 1945 AGE: 71Y DATE: 11/28/2016 ROOM: 430 SUBJECTIVE: The patient is currently out of bed to the bedside chair. The patient has no recollection of what brought him to the hospital. The patient states that he feels he "takes way too many medications at home." The patient is agreeable to decreasing some of his home medications. The patient states that he has periods of intermittent amnesia. The patient today has been afebrile. His blood pressures have been in a good range and the patient does not voice any other concerns at this time. REVIEW OF SYSTEMS: The rest of review of systems are negative. MEDICATIONS: Medications have been reviewed. OBJECTIVE: GENERAL: The patient is an 71-year-old male who is awake, alert. He is oriented to person, place, time, and situation. He does not appear to be in any acute distress. VITAL SIGNS FOLLOWS: Temperature 98.2, pulse 57, respirations 22, blood pressure 130/69, oxygen saturation is 98% on 2 L nasal cannula. SKIN: Warm and dry. No rash, not diaphoretic. HEENT: Pupils are equal but still pinpoint. There is no JVP. CARDIOVASCULAR: Heart is regular. He does have a 4/6 pansystolic murmur, no rub. CHEST: The patient does have expiratory wheezes noted in both lung dodge with coarse lung sounds. ABDOMEN: No CVA tenderness or sacral edema. EXTREMITIES: No clubbing, cyanosis or edema. PSYCHIATRIC: Odd affect and unusual. DIAGNOSTICS: Lab values are as follows: Hematology obtained on 11/27/2016: WBC 9.6, hemoglobin 14.0, hematocrit 40.8, platelet count 144,000. Chemistry obtained on 11/27/2016: CK 4167. IMPRESSION AND PLAN: 1. RHABDOMYOLYSIS. This is due to inactivity. According to the patient, he has been laying around significantly. We will continue to hydrate but decrease the rate given that there is concern for possible volume overload. We will repeat CK and chemistries and follow. 2. POLYPHARMACY. The patient has agreed to decrease his home medications. Have held the patient's muscle relaxers, opiates and also Vistaril. We will see how the patient responds to this. 3. ACUTE ENCEPHALOPATHY. Most likely secondary to #2. It appears the patient does have underlying cognitive deficits with possible dementia. 4. ACUTE HYPOXEMIC RESPIRATORY FAILURE. The exact etiology of this is possibly due to the patient's tobacco dependency as well as COPD. Overall he is improving but still requiring 02. We will start the patient on moderate dose of steroids and follow. 5. TOBACCO DEPENDENCY. Will continue p.r.n. nicotine patch. 6. THROMBOCYTOPENIA. Relatively mild, will follow. 7. CHRONIC OBSTRUCTIVE PULMONARY DISEASE. Will continue the patient's home medications. 8. LEUKOCYTOSIS. This improved with hydration. DISPOSITION: The patient is a DO NOT RESUSCITATE/DO NOT INTUBATE given his desire for a natural . Pending the patient's symptomatology and diagnostic findings, we will reevaluate in the a.m. Time spent on this followup including physical examination and patient education is 25 minutes. ADDENDUM: Brief history: The patient is a 71-year-old male with a past medical history of heavy tobacco use of up to 2 packs a day and COPD. The patient was brought in to the emergency room from the [facility] due to being difficult to arouse and decreased activity. The patient was found to be hypoxic but no etiology for this. The patient was given nebulizers and was also found to have rhabdomyolysis and was referred to the hospitalist for admission and management. DICTATING PHYSICIAN: ROSA MARIA RODRIGUEZ NP [id number] PRABHAKARY#: [id number] ID: [id number] JOB#: [id number] ACCT: [id number] cc: >
[2016-11-28] MEDS: PREDNISONE 20 MG TABLET PO SCH ×2 (10:35→17:10)
[2016-11-28] MEDS: AMLODIPINE BESYLATE 10 MG TABLET PO SCH (10:36)
[2016-11-28 11:25] LABS: ANION GAP 6 (5-19); BLOOD UREA NITROGEN 18 mg/dL (7-20); CARBON DIOXIDE 27 mmol/L (22-30); CHLORIDE 106 mmol/L (98-107); CREATININE RESULT 0.76 mg/dL (0.52-1.25); GLUCOSE 123 mg/dL (75-110)
[2016-11-28 11:32] LABS: CREATINE KINASE 2555 U/L (55-170)
[2016-11-28] MEDS: NICOTINE 21 MG/24 HR PATCH.TD24 TD PRN (14:23)
[2016-11-28] MEDS: TRAZODONE HCL 50 MG TABLET PO SCH (21:32)
[2016-11-28] MEDS: GALANTAMINE HBR 4 MG TABLET PO SCH (21:32)
[2016-11-28] MEDS: ATORVASTATIN CALCIUM 10 MG TABLET PO SCH (21:32)
[2016-11-28] MEDS ORDERED: LORAZEPAM INJ 2 MG/1 ML VIAL IV ONE (23:00)
[2016-11-29] MEDS: IBUPROFEN 800 MG TABLET PO SCH (05:04)
[2016-11-29 06:11] LABS: HEMATOCRIT 38.3 % (37.9-51.0); HEMOGLOBIN 12.9 g/dL (13.5-17.0); HGB HCT DIFFERENCE 0.4; MEAN CORPUSCULAR HGB CONC 33.6 g/dL (32.0-36.0); MEAN CORPUSCULAR VOLUME 92 fl (80-97); RED BLOOD COUNT 4.16 10^6/uL (4.35-5.55); RED CELL DISTRIBUTION WIDTH 13.8 % (11.5-14.0); WHITE BLOOD COUNT 14.4 10^3/uL (4.0-10.5)
[2016-11-29 06:40] LABS: ANION GAP 9 (5-19); BLOOD UREA NITROGEN 19 mg/dL (7-20); CARBON DIOXIDE 27 mmol/L (22-30); CHLORIDE 103 mmol/L (98-107); GLUCOSE 119 mg/dL (75-110); POTASSIUM 4.8 mmol/L (3.6-5.0); SODIUM 138.7 mmol/L (137-145)
[2016-11-29 06:59] LABS: CREATINE KINASE 3051 U/L (55-170)
[2016-11-29] MEDS: LANSOPRAZOLE 15 MG TAB.RAP.DR PO SCH (09:12)
[2016-11-29] MEDS: PREDNISONE 20 MG TABLET PO SCH ×2 (09:12→17:25)
[2016-11-29] MEDS: ASPIRIN 325 MG TABLET PO SCH (09:12)
[2016-11-29] MEDS: HALOPERIDOL 0.5 MG TABLET PO SCH ×2 (09:12→21:57)
[2016-11-29] MEDS: CITALOPRAM HYDROBROMIDE 20 MG TABLET PO SCH (09:12)
[2016-11-29] MEDS: ENOXAPARIN SODIUM INJ 40 MG/0.4 ML DISP.SYRIN SUBCUT SCH (09:13)
[2016-11-29] MEDS: POLYETHYLENE GLYCOL 3350 POWDER 17 GM/1 PACKET PO SCH (09:13)
[2016-11-29] MEDS: POLYVINYL ALCOHOL 1.4% OPH SOLN 15 ML OU SCH ×3 (09:17→17:27)
[2016-11-29] MEDS ORDERED: ZIPRASIDONE MESYLATE INJ/PF 20 MG SDV IM ONE (10:13)
[2016-11-29] MEDS ORDERED: ALBUTEROL SULFATE HFA (90 MCG/PUFF) 8 GM MDI (1 MDI/ER DISP) IH PRN (10:14)
--- NOTE | 2016-11-29 10:28 | PDOC PROGRESS REPORT ---
Subjective Progress Note for:: 11/29/16 Subjective:: The patient was restless and agitated. Patient was upset being in the hospital. Patient reportedly lives in [facility] where her his also lives for dementia. No reported respiratory distress or temperature spikes. Patient reportedly trying to leave the hospital and security has to be called. No chills or fever, respiratory distress, nausea or vomiting, nor any diarrhea. During conversation the patient is very uncooperative and hostile. Physical Exam Vital Signs: Temp Pulse Resp BP Pulse Ox 98.9 F 74 16 166/78 H 96 11/29/16 07:35 11/29/16 07:35 11/29/16 07:35 11/29/16 07:35 11/29/16 07:35 Intake & Output 11/28/16 11/29/16 11/30/16 06:59 06:59 06:59 Intake Total 3497 2419 Output Total 800 1255 Balance 2697 1164 General appearance: PRESENT: other - No respiratory distress, uncooperative Head exam: PRESENT: normocephalic Neck exam: ABSENT: JVD GI/Abdominal exam: ABSENT: distended Neurological exam: PRESENT: alert, awake, other - Unable to cooperate with examination. Psychiatric exam: PRESENT: agitated, anxious Focused psych exam: PRESENT: restlessness Skin exam: PRESENT: dry. ABSENT: cyanosis, jaundice Results Laboratory Results: 11/29/16 05:24 11/29/16 05:24 11/28/16 11/29/16 11/29/16 10:52 05:24 05:24 WBC 14.4 H RBC 4.16 L Hgb 12.9 L Hct 38.3 MCV 92 MCH 31.0 MCHC 33.6 RDW 13.8 Plt Count 150 Sodium 139.0 138.7 Potassium 4.0 4.8 Chloride 106 103 Carbon Dioxide 27 27 Anion Gap 6 9 BUN 18 19 Creatinine 0.76 0.80 Est GFR ( Amer) > 60 > 60 Est GFR (Non-Af Amer) > 60 > 60 Glucose 123 H 119 H Calcium 9.0 10.0 Magnesium 2.0 11/27/16 11/27/16 11/27/16 04:14 04:14 09:03 Creatine Kinase 3136 H 4167 H Troponin I < 0.012 11/28/16 11/29/16 10:52 05:24 Creatine Kinase 2555 H 3051 H Troponin I Impressions: Head CT 11/26/16 00:00 IMPRESSION: MILD CHRONIC CHANGES OF ATROPHY AND MICROVASCULAR ISCHEMIA. NO ACUTE PROCESS. Chest X-Ray 11/26/16 16:13 IMPRESSION: NO SIGNIFICANT RADIOGRAPHIC FINDING IN THE CHEST. Lung Scan-VQ NM 11/26/16 22:41 IMPRESSION: Limited ventilation study. Bilateral perfusion defects, high probability for pulmonary emboli. Evaluation with CT angiogram recommended. Abdomen/Pelvis CTA 11/27/16 00:00 IMPRESSION: 4.4 x 4.4 cm infrarenal abdominal aortic aneurysm, mildly increased in size in the interval. No CT evidence for acute dissection. Intramural thrombus at the proximal SMA with luminal narrowing. Nonobstructing left nephrolithiasis. Chest/Abdomen CTA 11/27/16 00:00 IMPRESSION: No pulmonary emboli. Mild bibasilar atelectasis. 4.0 cm ascending thoracic aortic aneurysm. Irregular intramural thrombus with penetrating ulcerations at the aortic arch. 1.3 cm hypodense nodule at the left thyroid lobe. This can be better evaluated with dedicated ultrasound. Thyroid Ultrasound 11/27/16 00:00 IMPRESSION: Left lobe thyroid 1.5 cm solid nodule. No suspicious calcifications or clear indication for biopsy based on imaging features at this time. RECOMMENDATIONS FOR THYROID NODULES 1 CM OR LARGER Solitary nodules: Microcalcifications - FNA if 1 cm or greater. Solid or coarse calcification - FNA if 1.5 cm or greater. Mixed Solid/Cystic or Cystic with Mural Nodule - FNA if 2 cm or greater. None of the above but substantial growth since previous - FNA. Cystic with none of the above features and no significant growth - no FNA. Reference: Management of Thyroid Nodules Detected at US: Society of Radiologists in Ultrasound Consensus Statement. Radiology 2005; [id number] Assessment & Plan - Diagnosis (1) Acute encephalopathy Is this a current diagnosis for this admission?: Yes (2) Rhabdomyolysis Qualifiers: Rhabdomyolysis type: non-traumatic Qualified Code(s): M62.82 - Rhabdomyolysis Is this a current diagnosis for this admission?: Yes (3) COPD (chronic obstructive pulmonary disease) Qualifiers: COPD type: unspecified COPD Qualified Code(s): J44.9 - Chronic obstructive pulmonary disease, unspecified Is this a current diagnosis for this admission?: Yes (4) Dementia Qualifiers: Alzheimer's disease onset: unspecified onset Dementia behavioral disturbance: with behavioral disturbance Is this a current diagnosis for this admission?: Yes (5) Thyroid nodule Is this a current diagnosis for this admission?: Yes (6) AAA (abdominal aortic aneurysm) Qualifiers: Presence of rupture: without rupture Qualified Code(s): I71.4 - Abdominal aortic aneurysm, without rupture Is this a current diagnosis for this admission?: Yes - Time Time Spent with patient: 25-34 minutes - Plan Summary Plan Summary: We are going to give Geodon intramuscular 10 mg IM now. I am going to increase the patient's Haldol dose. I will discontinue his cholesterol medication and ibuprofen. We will monitor CPK as it is trending up and continue gentle hydration. Hopefully the patient improves in the next few days and be cooperative.
[2016-11-29] MEDS ORDERED: HALOPERIDOL LACTATE INJ 5 MG/1 ML VIAL ONE (10:44)
[2016-11-29] MEDS: AMLODIPINE BESYLATE 10 MG TABLET PO SCH (10:51)
[2016-11-29] MEDS ORDERED: HALOPERIDOL LACTATE INJ 5 MG/1 ML VIAL IM PRN (10:59)
[2016-11-29] MEDS ORDERED: ALBUTEROL SULFATE HFA (90 MCG/PUFF) 200 PUFF/8.5 GM MDI IH PRN (11:24)
[2016-11-29] MEDS ORDERED: HALOPERIDOL LACTATE INJ 5 MG/1 ML VIAL IM ONE (11:30)
[2016-11-29] MEDS: IPRATROPIUM/ALBUTEROL 0.5-2.5 MG/3 ML AMPUL NEB PRN (11:40)
[2016-11-29] MEDS: GABAPENTIN 300 MG CAPSULE PO SCH ×2 (16:02→21:57)
[2016-11-29] MEDS: NICOTINE 21 MG/24 HR PATCH.TD24 TD PRN (16:21)
[2016-11-29] MEDS: GALANTAMINE HBR 4 MG TABLET PO SCH (21:57)
[2016-11-29] MEDS: TRAZODONE HCL 50 MG TABLET PO SCH (21:57)
[2016-11-30] MEDS: GABAPENTIN 300 MG CAPSULE PO SCH ×3 (05:46→21:50)
[2016-11-30] MEDS: ENOXAPARIN SODIUM INJ 40 MG/0.4 ML DISP.SYRIN SUBCUT SCH (11:17)
[2016-11-30] MEDS: POLYVINYL ALCOHOL 1.4% OPH SOLN 15 ML OU SCH ×3 (11:17→18:20)
[2016-11-30] MEDS: ASPIRIN 325 MG TABLET PO SCH (11:17)
[2016-11-30] MEDS: PREDNISONE 20 MG TABLET PO SCH ×2 (11:17→18:20)
[2016-11-30] MEDS: HALOPERIDOL 0.5 MG TABLET PO SCH ×2 (11:18→21:50)
[2016-11-30] MEDS: AMLODIPINE BESYLATE 10 MG TABLET PO SCH (11:18)
[2016-11-30] MEDS: LANSOPRAZOLE 15 MG TAB.RAP.DR PO SCH (11:18)
[2016-11-30] MEDS: CITALOPRAM HYDROBROMIDE 20 MG TABLET PO SCH (11:19)
[2016-11-30] MEDS: IPRATROPIUM/ALBUTEROL 0.5-2.5 MG/3 ML AMPUL NEB PRN ×2 (11:19→21:19)
[2016-11-30] MEDS: POLYETHYLENE GLYCOL 3350 POWDER 17 GM/1 PACKET PO SCH (11:19)
[2016-11-30 15:23] LABS: ALANINE AMINOTRANSFERASE 42 U/L (21-72); ALBUMIN 3.7 g/dL (3.5-5.0); ALKALINE PHOSPHATASE 73 U/L (38-126); ASPARTATE AMINO TRANSFERASE 55 U/L (17-59); BILIRUBIN,DIRECT 0.4 mg/dL (0.0-0.4); BILIRUBIN,TOTAL 0.5 mg/dL (0.2-1.3); TOTAL PROTEIN 5.9 g/dL (6.3-8.2)
--- NOTE | 2016-11-30 15:55 | PDOC PROGRESS REPORT ---
Subjective Progress Note for:: 11/30/16 Subjective:: The patient is resting in his bed. He has a sitter at the bedside. He is alert and oriented 3 when I talk to him. He did not have his oxygen on when I came into the room and I had the nursing staff check and he was stable in the low 90s on room air. Overall he states that he is quite anxious to go home. He really has not been up out of the bed and walked. He does get a little confused at times while I am talking to him. I am not sure how accurate this review of systems is. He denies fever chills. No chest pain or heart palpitations. He states he has continued wheezing. No nausea vomiting or diarrhea. He has good appetite. No dysuria, frequency or hematuria. Physical Exam Vital Signs: Temp Pulse Resp BP Pulse Ox 97.7 F 85 16 134/75 H 96 11/30/16 10:56 11/30/16 11:20 11/30/16 11:20 11/30/16 10:56 11/30/16 11:20 Intake & Output 11/29/16 11/30/16 12/01/16 06:59 06:59 06:59 Intake Total 2419 3005 700 Output Total 1255 150 Balance 1164 2855 700 General appearance: PRESENT: no acute distress, disheveled - She has placed Head exam: PRESENT: atraumatic, normocephalic Mouth exam: PRESENT: moist Respiratory exam: PRESENT: rhonchi - He has coarse wheezing throughout all lung dodge., wheezes. ABSENT: accessory muscle use, chest wall tenderness, retraction Cardiovascular exam: PRESENT: RRR, +S1, +S2. ABSENT: diastolic murmur, gallop, rubs, systolic murmur GI/Abdominal exam: PRESENT: normal bowel sounds, soft. ABSENT: distended, guarding, mass, organolmegaly, rebound, tenderness Rectal exam: PRESENT: deferred Extremities exam: PRESENT: full ROM. ABSENT: calf tenderness, clubbing, pedal edema Neurological exam: PRESENT: alert, awake, oriented to person, oriented to place , oriented to time, oriented to situation, CN II-XII grossly intact. ABSENT: motor sensory deficit Psychiatric exam: PRESENT: unusual affect. ABSENT: agitated, anxious Skin exam: PRESENT: dry, warm Results Laboratory Results: 11/29/16 05:24 09/11/17 05:24 11/27/16 11/27/16 11/27/16 04:14 04:14 09:03 Creatine Kinase 3136 H 4167 H Troponin I < 0.012 11/28/16 11/29/16 11/30/16 10:52 05:24 06:09 Creatine Kinase 2555 H 3051 H 1456 H Troponin I Impressions: Head CT 11/26/16 00:00 IMPRESSION: MILD CHRONIC CHANGES OF ATROPHY AND MICROVASCULAR ISCHEMIA. NO ACUTE PROCESS. Chest X-Ray 11/26/16 16:13 IMPRESSION: NO SIGNIFICANT RADIOGRAPHIC FINDING IN THE CHEST. Lung Scan-VQ NM 11/26/16 22:41 IMPRESSION: Limited ventilation study. Bilateral perfusion defects, high probability for pulmonary emboli. Evaluation with CT angiogram recommended. Abdomen/Pelvis CTA 11/27/16 00:00 IMPRESSION: 4.4 x 4.4 cm infrarenal abdominal aortic aneurysm, mildly increased in size in the interval. No CT evidence for acute dissection. Intramural thrombus at the proximal SMA with luminal narrowing. Nonobstructing left nephrolithiasis. Chest/Abdomen CTA 11/27/16 00:00 IMPRESSION: No pulmonary emboli. Mild bibasilar atelectasis. 4.0 cm ascending thoracic aortic aneurysm. Irregular intramural thrombus with penetrating ulcerations at the aortic arch. 1.3 cm hypodense nodule at the left thyroid lobe. This can be better evaluated with dedicated ultrasound. Thyroid Ultrasound 11/27/16 00:00 IMPRESSION: Left lobe thyroid 1.5 cm solid nodule. No suspicious calcifications or clear indication for biopsy based on imaging features at this time. RECOMMENDATIONS FOR THYROID NODULES 1 CM OR LARGER Solitary nodules: Microcalcifications - FNA if 1 cm or greater. Solid or coarse calcification - FNA if 1.5 cm or greater. Mixed Solid/Cystic or Cystic with Mural Nodule - FNA if 2 cm or greater. None of the above but substantial growth since previous - FNA. Cystic with none of the above features and no significant growth - no FNA. Reference: Management of Thyroid Nodules Detected at US: Society of Radiologists in Ultrasound Consensus Statement. Radiology 2005; [id number] Assessment & Plan - Diagnosis (1) Acute encephalopathy Is this a current diagnosis for this admission?: Yes Plan: The source of his encephalopathy is a little unclear. Likely due to polypharmacy. His medication list has been adjusted and he seems to be improving in this regard. He could also have some dementia with psychotic features as well. Continue current antipsychotic medications as he seems to be stable on those. He was also hypoxic at the time of admission that could have been contributing. (2) Rhabdomyolysis Qualifiers: Rhabdomyolysis type: non-traumatic Qualified Code(s): M62.82 - Rhabdomyolysis Is this a current diagnosis for this admission?: Yes Plan: I will check his CK level in the morning. Continue gentle hydration for now. (3) Polypharmacy Plan: His medication list has been reviewed and several of his medications been stopped. The patient seems to be improving. (4) COPD exacerbation Plan: The patient will continue 60 mg of prednisone in divided doses for now. He will continue usual bronchodilators. (5) Acute respiratory failure with hypoxia Plan: The patient was hypoxic when he came to the hospital. This is likely due to a COPD exacerbation. When I went in to see him today he had his oxygen off. I had the nursing staff check his O2 sats and they were stable at rest in the low 90s on room air. His acute respiratory failure seems to have resolved. (6) Dementia Qualifiers: Alzheimer's disease onset: unspecified onset Dementia behavioral disturbance: with behavioral disturbance Is this a current diagnosis for this admission?: Yes Plan: It is reported that the patient has underlying dementia. He could be developing some psychotic features with this. Continue current antipsychotics as he seems stable. (7) Thyroid nodule Is this a current diagnosis for this admission?: Yes Plan: Further workup can be obtained as an outpatient. This likely will need to just be followed and monitored. (8) AAA (abdominal aortic aneurysm) Qualifiers: Presence of rupture: without rupture Qualified Code(s): I71.4 - Abdominal aortic aneurysm, without rupture Is this a current diagnosis for this admission?: Yes Plan: This will need to be followed as an outpatient as well. No evidence of rupture (9) Leukocytosis Plan: Secondary to steroids (10) Tobacco dependency Is this a current diagnosis for this admission?: Yes Plan: The patient states he quit smoking when he came into the hospital. Certainly would be in his best interest for him to continue this. He states that he is not going to smoke anymore. (11) Anemia Plan: He has had a precipitous drop in hemoglobin likely secondary to hemodilution (12) Thrombocytopenia Plan: The cause is of undetermined significance at this point.In any event his thrombocytopenia has resolved - Time Time Spent with patient: 15-24 minutes - Inpatient Certification Medical Necessity: Need For IV Fluids - Inpatient hospitalization remains necessary. I would like for his CK level to go down a little bit more. I would like to check a liver panel and get physical therapy to see him to make sure he can safely ambulate. Hopefully he can be discharged in the next 24-48 hours.
[2016-11-30] MEDS: GALANTAMINE HBR 4 MG TABLET PO SCH (21:50)
[2016-11-30] MEDS: TRAZODONE HCL 50 MG TABLET PO SCH (21:50)
[2016-12-01] MEDS: GABAPENTIN 300 MG CAPSULE PO SCH ×3 (05:30→21:34)
[2016-12-01 06:50] LABS: ABSOLUTE LYMPHOCYTES (AUTO) 1.7 10^3/uL (0.5-4.7); ABSOLUTE MONOCYTES (AUTO) 0.6 10^3/uL (0.1-1.4); ABSOLUTE NEUT (AUTO) 8.5 10^3/uL (1.7-8.2); BASOPHILS % (AUTO) 0.2 % (0-2); HEMATOCRIT 35.2 % (37.9-51.0); HEMOGLOBIN 11.9 g/dL (13.5-17.0); HGB HCT DIFFERENCE 0.5; LYMPHOCYTES % (AUTO) 15.8 % (13-45); MEAN CORPUSCULAR HEMOGLOBIN 31.1 pg (27.0-33.4); MEAN CORPUSCULAR HGB CONC 33.7 g/dL (32.0-36.0); MEAN CORPUSCULAR VOLUME 93 fl (80-97); MONOCYTES % (AUTO) 5.7 % (3-13); RED BLOOD COUNT 3.81 10^6/uL (4.35-5.55); RED CELL DISTRIBUTION WIDTH 13.8 % (11.5-14.0); SEGMENTED NEUTROPHILS % (AUTO) 78.3 % (42-78); WHITE BLOOD COUNT 10.9 10^3/uL (4.0-10.5)
[2016-12-01 07:06] LABS: ANION GAP 6 (5-19); BLOOD UREA NITROGEN 28 mg/dL (7-20); CALCIUM 9.3 mg/dL (8.4-10.2); CARBON DIOXIDE 30 mmol/L (22-30); CHLORIDE 102 mmol/L (98-107); GLUCOSE 126 mg/dL (75-110); MAGNESIUM 2.1 mg/dL (1.6-2.3); PHOSPHORUS 3.6 mg/dL (2.5-4.5); POTASSIUM 4.5 mmol/L (3.6-5.0); SODIUM 138.2 mmol/L (137-145)
[2016-12-01] MEDS: PREDNISONE 20 MG TABLET PO SCH ×2 (09:39→18:11)
[2016-12-01] MEDS: CITALOPRAM HYDROBROMIDE 20 MG TABLET PO SCH (09:39)
[2016-12-01] MEDS: HALOPERIDOL 0.5 MG TABLET PO SCH ×2 (09:40→21:34)
[2016-12-01] MEDS: ENOXAPARIN SODIUM INJ 40 MG/0.4 ML DISP.SYRIN SUBCUT SCH (09:40)
[2016-12-01] MEDS: LANSOPRAZOLE 15 MG TAB.RAP.DR PO SCH (09:40)
[2016-12-01] MEDS: ASPIRIN 325 MG TABLET PO SCH (09:40)
[2016-12-01] MEDS: POLYETHYLENE GLYCOL 3350 POWDER 17 GM/1 PACKET PO SCH (09:40)
[2016-12-01] MEDS: POLYVINYL ALCOHOL 1.4% OPH SOLN 15 ML OU SCH ×3 (09:44→18:14)
[2016-12-01] MEDS: AMLODIPINE BESYLATE 10 MG TABLET PO SCH (11:44)
--- NOTE | 2016-12-01 12:06 | PDOC PROGRESS REPORT ---
Subjective Progress Note for:: 12/01/16 Subjective:: The patient is a 71-year-old male with underlying COPD with ongoing tobacco abuse. He has a history of anxiety and depression as well as posttraumatic stress disorder, schizoid personality, hypertension, hyperlipidemia and arthritis. He has a history of a CVA with no residual symptoms. He resides at [facility] living [facility] with his . The patient was brought to the hospital via EMS after being found minimally responsive at his facility. He was found to have rhabdomyolysis. This may have been from being found down on the floor at the time of admission when he was unresponsive. Other than the rhabdomyolysis there was no evidence of infection. No good cause for his encephalopathy was noted other than the patient was on a very long list of medications and it was felt that polypharmacy may be contributing. The patient was found to be mildly wheezing and he was placed on p.o. prednisone. Initially at the beginning of the hospitalization the patient was quite confused and had some combative behavior. His medication list was significantly cut back and the patient was started on p.o. Haldol twice daily a couple of days ago and he has done quite well since that time. Today physical therapy saw the patient. He is quite unsteady on his feet with a shuffling gait and difficulty managing a walker. I do not think that he is safe to go back at this point and he likely need subacute rehabilitation prior to transitioning back to his assisted living facility. The discharge planners will be consulted. Today when I saw the patient he has no complaints that he is able to vocalize. He does answer questions appropriately but does get confused quite easily. He is alert and oriented 3. I am not sure how accurate this review of systems is but he denies fever or chills. No chest pain or heart palpitations. He does complain of being somewhat short of breath and having wheezing. He has had no nausea, vomiting or diarrhea. He is tolerating his diet. No abdominal pain. No urinary complaints. Physical Exam Vital Signs: Temp Pulse Resp BP Pulse Ox 98.6 F 94 16 120/79 94 12/01/16 08:00 12/01/16 08:00 12/01/16 08:00 12/01/16 08:00 12/01/16 08:00 Intake & Output 09/12/17 09/13/17 09/14/17 06:59 06:59 06:59 Intake Total 3005 1820 Output Total 150 Balance 2855 1820 General appearance: PRESENT: no acute distress, cooperative, disheveled, well- developed Head exam: PRESENT: atraumatic, normocephalic Mouth exam: PRESENT: moist, tongue midline Respiratory exam: PRESENT: clear to auscultation mami. ABSENT: rales, rhonchi, wheezes Cardiovascular exam: PRESENT: RRR, +S1, +S2, systolic murmur GI/Abdominal exam: PRESENT: normal bowel sounds, soft. ABSENT: distended, guarding, mass, organolmegaly, rebound, tenderness Rectal exam: PRESENT: deferred Extremities exam: PRESENT: full ROM. ABSENT: calf tenderness, clubbing, pedal edema Musculoskeletal exam: PRESENT: other - The patient has a shuffling gait Neurological exam: PRESENT: alert, awake, oriented to person, oriented to place , oriented to time, oriented to situation, CN II-XII grossly intact. ABSENT: motor sensory deficit Psychiatric exam: PRESENT: appropriate affect, normal mood. ABSENT: homicidal ideation, suicidal ideation Skin exam: PRESENT: abrasion Results Laboratory Results: 12/01/16 05:28 12/01/16 05:28 11/30/16 11/30/16 12/01/16 14:45 14:45 05:28 WBC 10.9 H RBC 3.81 L Hgb 11.9 L Hct 35.2 L MCV 93 MCH 31.1 MCHC 33.7 RDW 13.8 Plt Count 160 Seg Neutrophils % 78.3 H Lymphocytes % 15.8 Monocytes % 5.7 Eosinophils % 0.0 Basophils % 0.2 Absolute Neutrophils 8.5 H Absolute Lymphocytes 1.7 Absolute Monocytes 0.6 Absolute Eosinophils 0.0 Absolute Basophils 0.0 Sodium Potassium Chloride Carbon Dioxide Anion Gap BUN Creatinine Est GFR ( Amer) Est GFR (Non-Af Amer) Glucose Calcium Phosphorus Magnesium Total Bilirubin 0.5 AST 55 ALT 42 Alkaline Phosphatase 73 Ammonia < 8.7 L Total Protein 5.9 L Albumin 3.7 12/01/16 05:28 WBC RBC Hgb Hct MCV MCH MCHC RDW Plt Count Seg Neutrophils % Lymphocytes % Monocytes % Eosinophils % Basophils % Absolute Neutrophils Absolute Lymphocytes Absolute Monocytes Absolute Eosinophils Absolute Basophils Sodium 138.2 Potassium 4.5 Chloride 102 Carbon Dioxide 30 Anion Gap 6 BUN 28 H Creatinine 0.90 Est GFR ( Amer) > 60 Est GFR (Non-Af Amer) > 60 Glucose 126 H Calcium 9.3 Phosphorus 3.6 Magnesium 2.1 Total Bilirubin AST ALT Alkaline Phosphatase Ammonia Total Protein Albumin 11/27/16 11/27/16 11/27/16 04:14 04:14 09:03 Creatine Kinase 3136 H 4167 H Troponin I < 0.012 11/28/16 11/29/16 11/30/16 10:52 05:24 06:09 Creatine Kinase 2555 H 3051 H 1456 H Troponin I 12/01/16 05:28 Creatine Kinase 547 H Troponin I Impressions: Head CT 11/26/16 00:00 IMPRESSION: MILD CHRONIC CHANGES OF ATROPHY AND MICROVASCULAR ISCHEMIA. NO ACUTE PROCESS. Chest X-Ray 11/26/16 16:13 IMPRESSION: NO SIGNIFICANT RADIOGRAPHIC FINDING IN THE CHEST. Lung Scan-VQ NM 11/26/16 22:41 IMPRESSION: Limited ventilation study. Bilateral perfusion defects, high probability for pulmonary emboli. Evaluation with CT angiogram recommended. Abdomen/Pelvis CTA 11/27/16 00:00 IMPRESSION: 4.4 x 4.4 cm infrarenal abdominal aortic aneurysm, mildly increased in size in the interval. No CT evidence for acute dissection. Intramural thrombus at the proximal SMA with luminal narrowing. Nonobstructing left nephrolithiasis. Chest/Abdomen CTA 11/27/16 00:00 IMPRESSION: No pulmonary emboli. Mild bibasilar atelectasis. 4.0 cm ascending thoracic aortic aneurysm. Irregular intramural thrombus with penetrating ulcerations at the aortic arch. 1.3 cm hypodense nodule at the left thyroid lobe. This can be better evaluated with dedicated ultrasound. Thyroid Ultrasound 11/27/16 00:00 IMPRESSION: Left lobe thyroid 1.5 cm solid nodule. No suspicious calcifications or clear indication for biopsy based on imaging features at this time. RECOMMENDATIONS FOR THYROID NODULES 1 CM OR LARGER Solitary nodules: Microcalcifications - FNA if 1 cm or greater. Solid or coarse calcification - FNA if 1.5 cm or greater. Mixed Solid/Cystic or Cystic with Mural Nodule - FNA if 2 cm or greater. None of the above but substantial growth since previous - FNA. Cystic with none of the above features and no significant growth - no FNA. Reference: Management of Thyroid Nodules Detected at [place]: Society of Radiologists in Ultrasound Consensus Statement. Radiology 2005; [id number] Assessment & Plan - Diagnosis (1) Acute encephalopathy Is this a current diagnosis for this admission?: Yes Plan: The source of his encephalopathy is a little unclear. Likely due to polypharmacy. His medication list has been adjusted and he seems to be improving in this regard. He could also have some dementia with psychotic features as well. Continue Haldol 1 mg twice daily. Penny casey is doing very well on this regimen. He was also hypoxic at the time of admission that could have been contributing to his encephalopathy as well. (2) Rhabdomyolysis Qualifiers: Rhabdomyolysis type: non-traumatic Qualified Code(s): M62.82 - Rhabdomyolysis Is this a current diagnosis for this admission?: Yes Plan: Unfortunately the patient pulled out his IV a couple of days ago. He did receive IV fluids for a couple of days at the time of admission. His CK level continues to trend downwards. This was likely from being found down on the floor at his assisted living facility. (3) Polypharmacy Plan: His medication list has been reviewed and several of his medications been stopped. The patient seems to be improving. (4) COPD exacerbation Plan: The patient will continue 60 mg of prednisone in divided doses for now. He will continue usual bronchodilators. (5) Acute respiratory failure with hypoxia Plan: The patient was hypoxic when he came to the hospital. This is likely due to a COPD exacerbation. The patient likes wearing oxygen here in the hospital but is no longer requiring oxygen therapy. We ambulated him down the stubbs with a rolling walker without his oxygen on and his oxygen saturations remained stable today. I do not believe he will need ongoing oxygen therapy when he leaves the hospital. (6) Dementia Qualifiers: Alzheimer's disease onset: unspecified onset Dementia behavioral disturbance: with behavioral disturbance Is this a current diagnosis for this admission?: Yes Plan: It is reported that the patient has underlying dementia. He could be developing some psychotic features with this. Continue current antipsychotics as he seems stable. (7) Thyroid nodule Is this a current diagnosis for this admission?: Yes Plan: Further workup can be obtained as an outpatient. This likely will need to just be followed and monitored. (8) AAA (abdominal aortic aneurysm) Qualifiers: Presence of rupture: without rupture Qualified Code(s): I71.4 - Abdominal aortic aneurysm, without rupture Is this a current diagnosis for this admission?: Yes Plan: This will need to be followed as an outpatient as well. No evidence of dissection (9) Leukocytosis Plan: Secondary to steroids (10) Tobacco dependency Is this a current diagnosis for this admission?: Yes Plan: The patient states he quit smoking when he came into the hospital. Certainly would be in his best interest for him to continue this. He states that he is not going to smoke anymore. (11) Anemia Plan: He has had a precipitous drop in hemoglobin likely secondary to hemodilution (12) Thrombocytopenia Plan: Of undetermined significance at this point. In any event his thrombocytopenia has resolved - Time Time Spent with patient: 25-34 minutes - Inpatient Certification Medical Necessity: Other - Inpatient hospitalization remains necessary for disposition. I do not believe this patient is safe to go back to his assisted living facility without further rehabilitation. I watched him ambulate down the stubbs and he has significant deficits. I believe he needs subacute rehabilitation prior to transitioning back to his assisted living facility. The discharge planners have been consulted.
[2016-12-01] MEDS: IPRATROPIUM/ALBUTEROL 0.5-2.5 MG/3 ML AMPUL NEB PRN (12:08)
[2016-12-01] MEDS: GALANTAMINE HBR 4 MG TABLET PO SCH (21:34)
[2016-12-01] MEDS: TRAZODONE HCL 50 MG TABLET PO SCH (21:34)
[2016-12-02] MEDS: GABAPENTIN 300 MG CAPSULE PO SCH ×3 (06:33→21:42)
[2016-12-02] MEDS: AMLODIPINE BESYLATE 10 MG TABLET PO SCH (10:42)
[2016-12-02] MEDS: PREDNISONE 20 MG TABLET PO SCH ×2 (10:43→17:17)
[2016-12-02] MEDS: CITALOPRAM HYDROBROMIDE 20 MG TABLET PO SCH (10:43)
[2016-12-02] MEDS: HALOPERIDOL 0.5 MG TABLET PO SCH ×2 (10:43→21:41)
[2016-12-02] MEDS: LANSOPRAZOLE 15 MG TAB.RAP.DR PO SCH (10:43)
[2016-12-02] MEDS: POLYVINYL ALCOHOL 1.4% OPH SOLN 15 ML OU SCH ×3 (10:44→17:17)
[2016-12-02] MEDS: ENOXAPARIN SODIUM INJ 40 MG/0.4 ML DISP.SYRIN SUBCUT SCH (10:44)
[2016-12-02] MEDS: POLYETHYLENE GLYCOL 3350 POWDER 17 GM/1 PACKET PO SCH (10:44)
[2016-12-02] MEDS: ASPIRIN 325 MG TABLET PO SCH (10:44)
--- NOTE | 2016-12-02 16:06 | PDOC PROGRESS REPORT ---
Subjective Progress Note for:: 12/02/16 Subjective:: Denies any complaints. Physical Exam Vital Signs: Temp Pulse Resp BP Pulse Ox 98.4 F 57 L 14 144/79 H 98 12/02/16 08:29 12/02/16 08:29 12/02/16 08:29 12/02/16 08:29 12/02/16 09:44 Intake & Output 12/01/16 12/02/16 12/03/16 06:59 06:59 06:59 Intake Total 1820 360 Balance 1820 360 General appearance: PRESENT: no acute distress Eye exam: PRESENT: conjunctiva pink. ABSENT: scleral icterus Mouth exam: PRESENT: moist, tongue midline Neck exam: ABSENT: JVD Respiratory exam: PRESENT: wheezes - Bilateral expiratory wheezes.. ABSENT: rales, rhonchi Cardiovascular exam: PRESENT: RRR, systolic murmur - 3/6. ABSENT: diastolic murmur, rubs GI/Abdominal exam: PRESENT: normal bowel sounds, soft. ABSENT: distended, guarding, mass, organolmegaly, rebound, tenderness Extremities exam: ABSENT: calf tenderness, clubbing, pedal edema Neurological exam: PRESENT: alert, awake, oriented to person, oriented to place , oriented to time, CN II-XII grossly intact. ABSENT: oriented to situation, motor sensory deficit Psychiatric exam: PRESENT: appropriate affect Skin exam: PRESENT: dry, intact, warm. ABSENT: cyanosis, rash Results Laboratory Results: 12/01/16 05:28 12/01/16 05:28 11/27/16 11/27/16 11/27/16 04:14 04:14 09:03 Creatine Kinase 3136 H 4167 H Troponin I < 0.012 11/28/16 11/29/16 11/30/16 10:52 05:24 06:09 Creatine Kinase 2555 H 3051 H 1456 H Troponin I 12/01/16 05:28 Creatine Kinase 547 H Troponin I Impressions: Head CT 11/26/16 00:00 IMPRESSION: MILD CHRONIC CHANGES OF ATROPHY AND MICROVASCULAR ISCHEMIA. NO ACUTE PROCESS. Chest X-Ray 11/26/16 16:13 IMPRESSION: NO SIGNIFICANT RADIOGRAPHIC FINDING IN THE CHEST. Lung Scan-VQ NM 11/26/16 22:41 IMPRESSION: Limited ventilation study. Bilateral perfusion defects, high probability for pulmonary emboli. Evaluation with CT angiogram recommended. Abdomen/Pelvis CTA 11/27/16 00:00 IMPRESSION: 4.4 x 4.4 cm infrarenal abdominal aortic aneurysm, mildly increased in size in the interval. No CT evidence for acute dissection. Intramural thrombus at the proximal SMA with luminal narrowing. Nonobstructing left nephrolithiasis. Chest/Abdomen CTA 11/27/16 00:00 IMPRESSION: No pulmonary emboli. Mild bibasilar atelectasis. 4.0 cm ascending thoracic aortic aneurysm. Irregular intramural thrombus with penetrating ulcerations at the aortic arch. 1.3 cm hypodense nodule at the left thyroid lobe. This can be better evaluated with dedicated ultrasound. Thyroid Ultrasound 11/27/16 00:00 IMPRESSION: Left lobe thyroid 1.5 cm solid nodule. No suspicious calcifications or clear indication for biopsy based on imaging features at this time. RECOMMENDATIONS FOR THYROID NODULES 1 CM OR LARGER Solitary nodules: Microcalcifications - FNA if 1 cm or greater. Solid or coarse calcification - FNA if 1.5 cm or greater. Mixed Solid/Cystic or Cystic with Mural Nodule - FNA if 2 cm or greater. None of the above but substantial growth since previous - FNA. Cystic with none of the above features and no significant growth - no FNA. Reference: Management of Thyroid Nodules Detected at [place]: Society of Radiologists in Ultrasound Consensus Statement. Radiology 2005; [id number] Assessment & Plan - Diagnosis (1) Acute encephalopathy Is this a current diagnosis for this admission?: Yes Plan: Most likely secondary to polypharmacy. This has been improving with reduction in his medications. Patient also is getting Haldol for some dementia with psychotic features. (2) Rhabdomyolysis Qualifiers: Rhabdomyolysis type: non-traumatic Qualified Code(s): M62.82 - Rhabdomyolysis Is this a current diagnosis for this admission?: Yes Plan: The patient's creatinine kinase continues to decrease. (3) Acute respiratory failure with hypoxia Is this a current diagnosis for this admission?: Yes Plan: Secondary to acute COPD exacerbation. (4) COPD exacerbation Is this a current diagnosis for this admission?: Yes Plan: Continue with steroids and nebulizers. (5) Anemia Is this a current diagnosis for this admission?: Yes Plan: Stable (6) Dementia Qualifiers: Alzheimer's disease onset: unspecified onset Dementia behavioral disturbance: with behavioral disturbance Is this a current diagnosis for this admission?: Yes Plan: Patient is getting Haldol. (7) Leukocytosis Is this a current diagnosis for this admission?: Yes Plan: Most likely secondary to steroids. (8) Polypharmacy Is this a current diagnosis for this admission?: Yes Plan: Patient's med list has been decreased. (9) Thrombocytopenia Is this a current diagnosis for this admission?: Yes Plan: Resolved (10) Thyroid nodule Is this a current diagnosis for this admission?: Yes Plan: This can be worked up as an outpatient. (11) AAA (abdominal aortic aneurysm) Qualifiers: Presence of rupture: without rupture Qualified Code(s): I71.4 - Abdominal aortic aneurysm, without rupture Is this a current diagnosis for this admission?: Yes Plan: Asymptomatic (12) Tobacco dependency Is this a current diagnosis for this admission?: Yes - Time Time Spent with patient: 25-34 minutes - Inpatient Certification Medical Necessity: Need Close Monitoring Due to Risk of Patient Decompensation
[2016-12-02] MEDS: IPRATROPIUM/ALBUTEROL 0.5-2.5 MG/3 ML AMPUL NEB PRN (21:10)
[2016-12-02] MEDS: GALANTAMINE HBR 4 MG TABLET PO SCH (21:41)
[2016-12-02] MEDS: TRAZODONE HCL 50 MG TABLET PO SCH (21:41)
[2016-12-03 02:17] VITALS: BP 156/79
[2016-12-03] MEDS: GABAPENTIN 300 MG CAPSULE PO SCH ×2 (06:23→14:44)
[2016-12-03 06:37] LABS: ABSOLUTE LYMPHOCYTES (AUTO) 2.5 10^3/uL (0.5-4.7); ABSOLUTE MONOCYTES (AUTO) 0.7 10^3/uL (0.1-1.4); ABSOLUTE NEUT (AUTO) 6.3 10^3/uL (1.7-8.2); BASOPHILS % (AUTO) 0.4 % (0-2); HEMATOCRIT 36.4 % (37.9-51.0); HEMOGLOBIN 12.9 g/dL (13.5-17.0); HGB HCT DIFFERENCE 2.3; LYMPHOCYTES % (AUTO) 26.2 % (13-45); MEAN CORPUSCULAR HEMOGLOBIN 31.9 pg (27.0-33.4); MEAN CORPUSCULAR HGB CONC 35.4 g/dL (32.0-36.0); MEAN CORPUSCULAR VOLUME 90 fl (80-97); MONOCYTES % (AUTO) 6.9 % (3-13); RED BLOOD COUNT 4.05 10^6/uL (4.35-5.55); RED CELL DISTRIBUTION WIDTH 13.7 % (11.5-14.0); SEGMENTED NEUTROPHILS % (AUTO) 66.5 % (42-78); WHITE BLOOD COUNT 9.5 10^3/uL (4.0-10.5)
[2016-12-03 06:48] LABS: BLOOD UREA NITROGEN 31 mg/dL (7-20); CALCIUM 9.3 mg/dL (8.4-10.2); CHLORIDE 102 mmol/L (98-107); CREATINE KINASE 167 U/L (55-170); CREATININE RESULT 0.79 mg/dL (0.52-1.25); GLUCOSE 117 mg/dL (75-110)
[2016-12-03 06:58] LABS: CARBON DIOXIDE 30 mmol/L (22-30); POTASSIUM 4.3 mmol/L (3.6-5.0); SODIUM 138.1 mmol/L (137-145)
[2016-12-03 07:03] LABS: ANION GAP 6 (5-19)
[2016-12-03] MEDS: IPRATROPIUM/ALBUTEROL 0.5-2.5 MG/3 ML AMPUL NEB PRN (08:20)
[2016-12-03] MEDS: ASPIRIN 325 MG TABLET PO SCH (11:19)
[2016-12-03] MEDS: AMLODIPINE BESYLATE 10 MG TABLET PO SCH (11:19)
[2016-12-03] MEDS: HALOPERIDOL 0.5 MG TABLET PO SCH (11:19)
[2016-12-03] MEDS: LANSOPRAZOLE 15 MG TAB.RAP.DR PO SCH (11:20)
[2016-12-03] MEDS: POLYETHYLENE GLYCOL 3350 POWDER 17 GM/1 PACKET PO SCH (11:21)
[2016-12-03] MEDS: PREDNISONE 20 MG TABLET PO SCH (11:21)
[2016-12-03] MEDS: CITALOPRAM HYDROBROMIDE 20 MG TABLET PO SCH (11:21)
[2016-12-03] MEDS: POLYVINYL ALCOHOL 1.4% OPH SOLN 15 ML OU SCH ×2 (11:22→14:44)
[2016-12-03] MEDS: ENOXAPARIN SODIUM INJ 40 MG/0.4 ML DISP.SYRIN SUBCUT SCH (11:23)
--- NOTE | 2016-12-03 14:07 | PDOC DISCHARGE SUMMARY ---
General - Admit/Disc Date/PCP Admission Date/Primary Care Provider: 11/26/16 22:54 Discharge Date: 12/03/16 - Discharge Diagnosis (1) Acute encephalopathy Is this a current diagnosis for this admission?: Yes Summary: Most likely secondary to medications. His medications have been decreased and he has also been started on Haldol for some probable dementia related changes. He is back to his baseline. (2) Rhabdomyolysis Is this a current diagnosis for this admission?: Yes Summary: Patient has had normalization of his creatinine kinase. (3) Acute respiratory failure with hypoxia Is this a current diagnosis for this admission?: Yes Summary: Secondary to acute COPD exacerbation. Patient will be sent home on a steroid taper. (4) COPD exacerbation Is this a current diagnosis for this admission?: Yes (5) Anemia Is this a current diagnosis for this admission?: Yes (6) Dementia Is this a current diagnosis for this admission?: Yes (7) Leukocytosis Is this a current diagnosis for this admission?: Yes Summary: Most likely secondary to steroid treatment. (8) Polypharmacy Is this a current diagnosis for this admission?: Yes Summary: Patient's medications have been decreased. (9) Thrombocytopenia Is this a current diagnosis for this admission?: Yes (10) Thyroid nodule Is this a current diagnosis for this admission?: Yes (11) AAA (abdominal aortic aneurysm) Is this a current diagnosis for this admission?: Yes Summary: Patient has a 4.4 cm thoracic aneurysm with ulceration and mural thrombus present. Because of this the patient was started on Xarelto. Will be referred to vascular surgery for evaluation of the thoracic aneurysm. (12) Tobacco dependency Is this a current diagnosis for this admission?: Yes - Additional Information Resuscitation Status: Full Code Discharge Diet: Cardiac Discharge Activity: Activity As Tolerated Home Medications: Amlodipine Besylate [Norvasc 5 mg Tablet] 10 mg PO DAILY 08/03/12 Galantamine HBr [Razadyne] 8 mg PO QHS 01/01/13 Hydroxyzine Pamoate [Vistaril 50 mg Capsule] 50 mg PO QHS PRN 01/01/13 Methocarbamol [Robaxin 500 mg Tablet] 250 mg PO Q8HP PRN 01/01/13 Nitroglycerin [Nitrostat 0.4 mg (1/150 Gr) Tabs 25/Bottle] 1 tab SL Q5MP PRN Triamterene/Hydrochlorothiazid [Triamterene-Hctz 37.5-25 mg Tb] 1 each PO MOWEFR 01/01/13 Citalopram Hydrobromide [Celexa 20 mg Tablet] 2 tab PO DAILY 03/02/13 Omeprazole 1 tab PO DAILY 03/02/13 Pravastatin Sodium [Pravachol] 1 tab PO DAILY 03/02/13 Trazodone HCl [Desyrel 50 mg Tablet] 1 tab PO QHS 03/02/13 Haloperidol [Haldol 0.5 mg Tablet] 0.5 mg PO Q12 05/23/14 Ibuprofen [Motrin 800 mg Tablet] 800 mg PO Q8H 05/23/14 Polyvinyl Alcohol [Liquid Tears] 1 drop OU Q4HP PRN 05/23/14 Albuterol Sulfate [Proair HFA] 2 puff IH Q4HP PRN 11/27/16 Gabapentin 300 mg PO Q8 11/27/16 Hydrocodone Bit/Acetaminophen [Hydrocodon-Acetaminophen 5-325] 1 tab PO Q12HP PRN 11/27/16 Magnesium Hydroxide [Milk of Magnesia 30 ml Udcup] 30 ml PO Q12HP PRN 11/27/16 Polyethylene Glycol 3350 [Miralax Powder 17 gm/Packet] 1 packet PO Q2D 11/27/16 Aspirin 81 mg PO DAILY #30 tab.chew 12/03/16 Nicotine [Nicoderm 21 mg/24 Hr Transderm Patch] 1 each TD DAILYP PRN patch.td24 12/03/16 Prednisone [Deltasone 20 mg Tablet] 10 mg PO DAILY #39 tablet 12/03/16 Rivaroxaban [Xarelto] 20 mg PO DAILY #30 tablet 12/03/16 History of Present Illness History of Present Illness: KOREY POOLE is a 71 year old male brought to the hospital from the [facility] assisted living. The patient was brought to urgent because he was found to the facility and was minimally responsive. When the patient was seen by EMS he was noted to have real change. Patient by the time he arrived to the emergency room was more alert. The patient pinpoint pupils and oxygen saturation of 80%. The patient was given Narcan with no real change. By the time the patient was at the emergency room he had had improvement in his respiratory status. Patient was found to have wheezing consistent with an acute COPD exacerbation but was confused. He was found to have rhabdomyolysis with an elevated creatine kinase. Hospital Course Hospital Course: 71-year-old male who presented with altered mental status and hypoxia. Patient was found to have an acute COPD exacerbation that was treated with IV steroids and oxygen. This improved and he was started on weaning his steroids. The patient was also confused when he presented and several of his medications were stopped and his mental status has improved. He also was noted to have an elevated creatinine kinase consistent with rhabdomyolysis. This was treated with IV fluids and on the day of discharge his CK had returned to normal. Because of his hypoxia had a CT scan which showed him to have a 4.4 cm thoracic aortic aneurysm. It also showed some ulceration with mural thrombus present. Because of the mural thrombus the patient was started on Xarelto. He will be referred to Dr. Miguelito Rapp of vascular surgery in [facility] for evaluation of the aortic aneurysm. The patient also does have a component of mild dementia. This was treated with Haldol as needed. Patient was back to his baseline and was felt that he was stable for discharge back to the assisted living facility. Physical Exam Vital Signs: Temp Pulse Resp BP Pulse Ox 98.3 F 64 18 156/79 H 96 12/02/16 23:18 12/03/16 08:20 12/03/16 08:20 12/02/16 23:18 12/03/16 08:20 Intake & Output 12/02/16 12/03/16 12/04/16 06:59 06:59 06:59 Intake Total 360 120 Balance 360 120 General appearance: PRESENT: no acute distress Eye exam: PRESENT: conjunctiva pink. ABSENT: scleral icterus Mouth exam: PRESENT: moist, tongue midline Neck exam: ABSENT: JVD Respiratory exam: PRESENT: clear to auscultation mami. ABSENT: rales, rhonchi, wheezes Cardiovascular exam: PRESENT: RRR. ABSENT: diastolic murmur, rubs, systolic murmur GI/Abdominal exam: PRESENT: normal bowel sounds, soft. ABSENT: distended, guarding, mass, organolmegaly, rebound, tenderness Extremities exam: ABSENT: calf tenderness, clubbing, pedal edema Neurological exam: PRESENT: alert, awake, oriented to person, oriented to place , oriented to time, oriented to situation, CN II-XII grossly intact. ABSENT: motor sensory deficit Psychiatric exam: PRESENT: appropriate affect Skin exam: PRESENT: dry, intact, warm. ABSENT: cyanosis, rash Results Laboratory Results: 12/03/16 06:18 12/03/16 06:18 12/03/16 12/03/16 06:18 06:18 WBC 9.5 RBC 4.05 L Hgb 12.9 L Hct 36.4 L MCV 90 MCH 31.9 MCHC 35.4 RDW 13.7 Plt Count 175 Seg Neutrophils % 66.5 Lymphocytes % 26.2 Monocytes % 6.9 Eosinophils % 0.0 Basophils % 0.4 Absolute Neutrophils 6.3 Absolute Lymphocytes 2.5 Absolute Monocytes 0.7 Absolute Eosinophils 0.0 Absolute Basophils 0.0 Sodium 138.1 Potassium 4.3 Chloride 102 Carbon Dioxide 30 Anion Gap 6 BUN 31 H Creatinine 0.79 Est GFR ( Amer) > 60 Est GFR (Non-Af Amer) > 60 Glucose 117 H Calcium 9.3 11/27/16 11/27/16 11/27/16 04:14 04:14 09:03 Creatine Kinase 3136 H 4167 H Troponin I < 0.012 11/28/16 11/29/16 11/30/16 10:52 05:24 06:09 Creatine Kinase 2555 H 3051 H 1456 H Troponin I 12/01/16 12/03/16 05:28 06:18 Creatine Kinase 547 H 167 Troponin I Impressions: Head CT 11/26/16 00:00 IMPRESSION: MILD CHRONIC CHANGES OF ATROPHY AND MICROVASCULAR ISCHEMIA. NO ACUTE PROCESS. Chest X-Ray 11/26/16 16:13 IMPRESSION: NO SIGNIFICANT RADIOGRAPHIC FINDING IN THE CHEST. Lung Scan-VQ NM 11/26/16 22:41 IMPRESSION: Limited ventilation study. Bilateral perfusion defects, high probability for pulmonary emboli. Evaluation with CT angiogram recommended. Abdomen/Pelvis CTA 11/27/16 00:00 IMPRESSION: 4.4 x 4.4 cm infrarenal abdominal aortic aneurysm, mildly increased in size in the interval. No CT evidence for acute dissection. Intramural thrombus at the proximal SMA with luminal narrowing. Nonobstructing left nephrolithiasis. Chest/Abdomen CTA 11/27/16 00:00 IMPRESSION: No pulmonary emboli. Mild bibasilar atelectasis. 4.0 cm ascending thoracic aortic aneurysm. Irregular intramural thrombus with penetrating ulcerations at the aortic arch. 1.3 cm hypodense nodule at the left thyroid lobe. This can be better evaluated with dedicated ultrasound. Thyroid Ultrasound 11/27/16 00:00 IMPRESSION: Left lobe thyroid 1.5 cm solid nodule. No suspicious calcifications or clear indication for biopsy based on imaging features at this time. RECOMMENDATIONS FOR THYROID NODULES 1 CM OR LARGER Solitary nodules: Microcalcifications - FNA if 1 cm or greater. Solid or coarse calcification - FNA if 1.5 cm or greater. Mixed Solid/Cystic or Cystic with Mural Nodule - FNA if 2 cm or greater. None of the above but substantial growth since previous - FNA. Cystic with none of the above features and no significant growth - no FNA. Reference: Management of Thyroid Nodules Detected at US: Society of Radiologists in Ultrasound Consensus Statement. Radiology 2005; 237:794-800 Qualifiers [place] BEING DISCHARGED WITH ANY OF THE FOLLOWING DIAGNOSIS?: No Plan Discharge Plan: Patient is transferred back to assisted living facility. Follow-up with primary care in 2 weeks. Patient will need an outpatient follow-up with vascular surgery, Dr. Rapp, for follow-up of aortic aneurysm with mural thrombus present. Time Spent: Greater than 30 Minutes
== END 2016-12-03 17:43 | DRG 91 ==
LOC: ER 15:30 → EH 21:00 → UNDOADMOB 21:00 → OBSVTOIN 21:00 → INTOOBSV 21:00 → EH 22:54 → OBSVTOIN 22:54 → EH 22:55 → 4S 22:55
PROVIDERS: ADMIT Family Medicine; ATTEND Family Medicine
DX: G92 Toxic encephalopathy (principal); J96.01 Acute respiratory failure with hypoxia; M62.82 Rhabdomyolysis; J44.1 Chronic obstructive pulmonary disease with (acute) exacerbation; T50.905A Adverse effect of unspecified drugs, medicaments and biological substances, initial encounter; Y92.9 Unspecified place or not applicable; D64.9 Anemia, unspecified; F03.90 Unspecified dementia, unspecified severity, without behavioral disturbance, psychotic disturbance, mood disturbance, and anxiety; D69.6 Thrombocytopenia, unspecified; E04.1 Nontoxic single thyroid nodule; I71.2 Thoracic aortic aneurysm, without rupture; E78.5 Hyperlipidemia, unspecified; I10 Essential (primary) hypertension; M19.90 Unspecified osteoarthritis, unspecified site; F41.1 Generalized anxiety disorder; F32.9 Major depressive disorder, single episode, unspecified; F43.10 Post-traumatic stress disorder, unspecified; Z79.899 Other long term (current) drug therapy; F17.200 Nicotine dependence, unspecified, uncomplicated; Z86.73 Personal history of transient ischemic attack (TIA), and cerebral infarction without residual deficits
CPT/HCPCS: 36415; 70450; 71020; 71275; 74174; 76536; 78582; 80048; 80053; 80076; 80307; 81001; 82140; 82550; 82553; 82803; 83735; 84100; 84443; 84484; 85025; 85027; 85379; 85610; 85730; 87040; 93005; 93010; 94640; 94799; 99285; A9540; A9567; G8978-GP; G8979-GP; J1630; J1650; J3486; J3490; J7030; J7512; J7620; Q9969

== ENCOUNTER 2017-09-18 11:03 | Emergency (ER) | payer OTHER, MEDICARE ==
[2017-09-18] MEDS ORDERED: IPRATROPIUM/ALBUTEROL 0.5-2.5 MG/3 ML AMPUL NEB ONE (11:31)
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
--- NOTE | 2017-09-18 11:59 | RADIOLOGY REPORT (SQ) ---
EXAM DESCRIPTION: CT HEAD WITHOUT COMPLETED DATE/TIME: 09/18/2017 11:44 am REASON FOR STUDY: 2 day history of difficulty walking COMPARISON: [address] brain exams since 01/02/2008, most recently 11/26/2016 TECHNIQUE: Axial images acquired through the brain without intravenous contrast. Images reviewed wi th bone, brain and subdural windows. Additional sagittal and coronal reconstructions were generated. Images stored on PACS. All CT scanners at this facility use dose modulation, iterative reconstruction, and/or weight based d osing when appropriate to reduce radiation dose to as low as reasonably achievable (ALARA). [facility]: Dose Right [facility]: CareDose [facility]: Dose Right [facility]: Teradose 4D [facility]: Smart Warwick Warp RADIATION DOSE: CT Rad equipment meets quality standard of care and radiation dose reduction techniq ues were employed. CTDIvol: 53.2 mGy. DLP: 1044 mGy-cm. mGy. LIMITATIONS: None. FINDINGS: VENTRICLES: Normal size and contour. CEREBRUM: No masses. No hemorrhage. No midline shift. No evidence for acute infarction. Normal gra y/white matter differentiation. No areas of low density in the white matter. CEREBELLUM: No masses. No hemorrhage. No alteration of density. No evidence for acute infarction. EXTRAAXIAL SPACES: No fluid collections. No masses. ORBITS AND GLOBE: No intra- or extraconal masses. Normal contour of globe without masses. CALVARIUM: No fracture. PARANASAL SINUSES: No fluid or mucosal thickening. SOFT TISSUES: No mass or hematoma. OTHER: No other significant finding. IMPRESSION: NORMAL BRAIN CT WITHOUT CONTRAST. EVIDENCE OF ACUTE STROKE: NO. COMMENT: Quality ID # [id number]: Final reports with documentation of one or more dose reduction techniques (e.g., Automated exposure control, adjustment of the mA and/or kV according to patient size, use of iterative reconstruction technique) TECHNICAL DOCUMENTATION: JOB ID: [id number] [employer]- All Rights Reserved Reading location - IP/workstation name: [email or web address]
[2017-09-18 12:23] LABS: ABSOLUTE BASOPHILS # (AUTO) 0.1 10^3/uL (0.0-0.2); ABSOLUTE EOSINOPHILS # (AUTO) 0.2 10^3/uL (0.0-0.6); ABSOLUTE LYMPHOCYTES (AUTO) 2.5 10^3/uL (0.5-4.7); ABSOLUTE MONOCYTES (AUTO) 0.5 10^3/uL (0.1-1.4); ABSOLUTE NEUT (AUTO) 2.8 10^3/uL (1.7-8.2); BASOPHILS % (AUTO) 1.1 % (0-2); EOSINOPHILS % (AUTO) 3.2 % (0-6); HEMATOCRIT 43.4 % (37.9-51.0); HEMOGLOBIN 15.1 g/dL (13.5-17.0); LYMPHOCYTES % (AUTO) 41.4 % (13-45); MEAN CORPUSCULAR HEMOGLOBIN 31.8 pg (27.0-33.4); MEAN CORPUSCULAR HGB CONC 34.7 g/dL (32.0-36.0); MEAN CORPUSCULAR VOLUME 92 fl (80-97); MONOCYTES % (AUTO) 8.6 % (3-13); PLATELET COUNT 174 10^3/uL (150-450); RED BLOOD COUNT 4.73 10^6/uL (4.35-5.55); RED CELL DISTRIBUTION WIDTH 13.8 % (11.5-14.0); SEGMENTED NEUTROPHILS % (AUTO) 45.7 % (42-78); TOTAL CELLS COUNTED % (AUTO) 100 %; WHITE BLOOD COUNT 6.1 10^3/uL (4.0-10.5)
--- NOTE | 2017-09-18 12:31 | RADIOLOGY REPORT (SQ) ---
EXAM DESCRIPTION: CHEST 2 VIEWS COMPLETED DATE/TIME: 09/18/2017 11:56 am REASON FOR STUDY: 2 day history of difficulty walking, COPD COMPARISON: Two-view chest 03/08/2014 CT chest 11/27/2016 EXAM PARAMETERS: NUMBER OF VIEWS: two views TECHNIQUE: Digital Frontal and Lateral radiographic views of the chest acquired. RADIATION DOSE: NA LIMITATIONS: none FINDINGS: LUNGS AND PLEURA: No opacities, masses or pneumothorax. No pleural effusion. MEDIASTINUM AND HILAR STRUCTURES: No masses or contour abnormalities. HEART AND VASCULAR STRUCTURES: Heart normal size. No evidence for failure. BONES: No acute findings. HARDWARE: None in the chest. OTHER: No other significant finding. IMPRESSION: NO ACUTE RADIOGRAPHIC FINDING IN THE CHEST. TECHNICAL DOCUMENTATION: JOB ID: [id number] [employer]- All Rights Reserved Reading location - IP/workstation name: [email or web address]
[2017-09-18 12:34] LABS: ALANINE AMINOTRANSFERASE 26 U/L (21-72); ALBUMIN 3.9 g/dL (3.5-5.0); ALKALINE PHOSPHATASE 75 U/L (38-126); ANION GAP 8 (5-19); ASPARTATE AMINO TRANSFERASE 18 U/L (17-59); BILIRUBIN,DIRECT 0.3 mg/dL (0.0-0.4); BILIRUBIN,TOTAL 0.5 mg/dL (0.2-1.3); BLOOD UREA NITROGEN 29 mg/dL (7-20); CALCIUM 9.2 mg/dL (8.4-10.2); CARBON DIOXIDE 27 mmol/L (22-30); CHLORIDE 109 mmol/L (98-107); CREATINE KINASE 85 U/L (55-170); GLUCOSE 99 mg/dL (75-110); POTASSIUM 4.6 mmol/L (3.6-5.0); SODIUM 144.1 mmol/L (137-145); TOTAL PROTEIN 6.7 g/dL (6.3-8.2)
[2017-09-18 12:46] LABS: APPEARANCE,URINE SLIGHTLY-CLOUDY; BILIRUBIN,URINE NEGATIVE (NEGATIVE); COLOR,URINE YELLOW; GLUCOSE, URINE NEGATIVE (NEGATIVE); KETONES,URINE NEGATIVE (NEGATIVE); LEUKOCYTE ESTERASE,URINE TRACE (NEGATIVE); NITRITE,URINE NEGATIVE (NEGATIVE); PROTEIN,URINE 30 mg/dL (NEGATIVE); URINE SPECIFIC GRAVITY 1.031
[2017-09-18 14:13] VITALS: BP 121/73
== END 2017-09-18 14:27 | disposition home or self-care (01) ==
LOC: ER 11:03
DX: J44.9 Chronic obstructive pulmonary disease, unspecified (principal); R29.898 Other symptoms and signs involving the musculoskeletal system; F03.90 Unspecified dementia, unspecified severity, without behavioral disturbance, psychotic disturbance, mood disturbance, and anxiety; R53.1 Weakness; I10 Essential (primary) hypertension; R42 Dizziness and giddiness; F17.200 Nicotine dependence, unspecified, uncomplicated
CPT/HCPCS: 94640; 99285; 36415; 82550; 85025; 80053; 81001; 84484; 71046; 70450; J7620

== ENCOUNTER 2018-05-01 18:59 | Emergency (ER) | payer OTHER, MEDICARE ==
[2018-05-01] MEDS ORDERED: IPRATROPIUM/ALBUTEROL 0.5-2.5 MG/3 ML AMPUL NEB ONE (19:24)
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
[2018-05-01 19:55] LABS: ABSOLUTE BASOPHILS # (AUTO) 0.1 10^3/uL (0.0-0.2); ABSOLUTE EOSINOPHILS # (AUTO) 0.3 10^3/uL (0.0-0.6); ABSOLUTE LYMPHOCYTES (AUTO) 3.3 10^3/uL (0.5-4.7); ABSOLUTE MONOCYTES (AUTO) 0.7 10^3/uL (0.1-1.4); ABSOLUTE NEUT (AUTO) 4.6 10^3/uL (1.7-8.2); BASOPHILS % (AUTO) 0.8 % (0-2); HEMATOCRIT 40.2 % (37.9-51.0); HEMOGLOBIN 13.9 g/dL (13.5-17.0); LYMPHOCYTES % (AUTO) 36.9 % (13-45); MEAN CORPUSCULAR HEMOGLOBIN 32.2 pg (27.0-33.4); MEAN CORPUSCULAR HGB CONC 34.7 g/dL (32.0-36.0); MEAN CORPUSCULAR VOLUME 93 fl (80-97); MONOCYTES % (AUTO) 7.9 % (3-13); PLATELET COUNT 177 10^3/uL (150-450); RED BLOOD COUNT 4.32 10^6/uL (4.35-5.55); RED CELL DISTRIBUTION WIDTH 13.7 % (11.5-14.0); SEGMENTED NEUTROPHILS % (AUTO) 51.4 % (42-78); TOTAL CELLS COUNTED % (AUTO) 100 %; WHITE BLOOD COUNT 8.9 10^3/uL (4.0-10.5)
[2018-05-01 20:16] LABS: ANION GAP 7 (5-19); BLOOD UREA NITROGEN 22 mg/dL (7-20); CALCIUM 9.5 mg/dL (8.4-10.2); CARBON DIOXIDE 29 mmol/L (22-30); CHLORIDE 104 mmol/L (98-107); GLUCOSE 115 mg/dL (75-110); POTASSIUM 4.2 mmol/L (3.6-5.0)
[2018-05-01 20:19] LABS: APPEARANCE,URINE CLEAR; BILIRUBIN,URINE NEGATIVE (NEGATIVE); COLOR,URINE YELLOW; GLUCOSE, URINE NEGATIVE (NEGATIVE); KETONES,URINE NEGATIVE (NEGATIVE); LEUKOCYTE ESTERASE,URINE NEGATIVE (NEGATIVE); NITRITE,URINE NEGATIVE (NEGATIVE); PROTEIN,URINE NEGATIVE (NEGATIVE); URINE SPECIFIC GRAVITY 1.012; UROBILINOGEN,URINE NEGATIVE mg/dL (<2.0)
--- NOTE | 2018-05-01 20:46 | RADIOLOGY REPORT (SQ) ---
XR CHEST 1 VIEW HISTORY: dizziness. COMPARISON: None. FINDINGS: The heart size is normal. The lungs are clear. No pleural effusions or pneumothorax is seen. No acute bony findings. IMPRESSION: No evidence of acute cardiopulmonary disease.
[2018-05-01 22:24] VITALS: BP 134/73
--- NOTE | 2018-05-01 23:22 | EKG REPORT ---
SEVERITY:- NORMAL ECG - SINUS RHYTHM : Confirmed by: Gail Erickson MD 01-May-2018 23:21:26
== END 2018-05-01 22:40 | disposition home or self-care (01) ==
LOC: ER 18:59
DX: R42 Dizziness and giddiness (principal); W01.0XXA Fall on same level from slipping, tripping and stumbling without subsequent striking against object, initial encounter; F17.200 Nicotine dependence, unspecified, uncomplicated; Z79.01 Long term (current) use of anticoagulants; I10 Essential (primary) hypertension; J44.9 Chronic obstructive pulmonary disease, unspecified
CPT/HCPCS: 93005; 94640; 99284; 36415; 85025; 80048; 81001; 84484; 71045; 93010; J7620

== ENCOUNTER 2018-05-12 12:45 | Emergency (ER) | payer OTHER, MEDICARE ==
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
[2018-05-12] MEDS ORDERED: TETRACAINE HCL 0.5% OPH SOLN 4 ML OD ONE (15:51)
[2018-05-12] MEDS ORDERED: DIPH/PERTUSS(ACELL)/TETANUS VAC/PF 0.5 ML SYR (>=10YO) IM ONE (15:52)
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
[2018-05-12] MEDS ORDERED: ERYTHROMYCIN 0.5% OPH OINTMENT 3.5 GM (ER DISP) OD PRN (17:37)
[2018-05-12 18:13] VITALS: BP 112/82
== END 2018-05-12 18:11 | disposition home or self-care (01) ==
LOC: ER 12:45
DX: S00.81XA Abrasion of other part of head, initial encounter (principal); H10.9 Unspecified conjunctivitis; F17.200 Nicotine dependence, unspecified, uncomplicated; W07.XXXA Fall from chair, initial encounter; E78.00 Pure hypercholesterolemia, unspecified; I10 Essential (primary) hypertension; J44.9 Chronic obstructive pulmonary disease, unspecified; Z87.442 Personal history of urinary calculi
CPT/HCPCS: 87070; 87077; 87186; 87205; 90471; 90715; 99283

== ENCOUNTER 2018-06-01 13:58 | Emergency (ER) | payer OTHER, MEDICARE ==
[2018-06-01 14:13] VITALS: BP 118/63
[2018-06-01] MEDS ORDERED: ERYTHROMYCIN 0.5% OPH OINTMENT 3.5 GM TUBE OU ONE (14:59)
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
== END 2018-06-01 15:46 | disposition home or self-care (01) ==
LOC: ER 13:58
DX: H10.89 Other conjunctivitis (principal); F17.210 Nicotine dependence, cigarettes, uncomplicated; E78.00 Pure hypercholesterolemia, unspecified; I10 Essential (primary) hypertension; J44.9 Chronic obstructive pulmonary disease, unspecified; Z87.442 Personal history of urinary calculi
CPT/HCPCS: 99283; J3490

== ENCOUNTER 2018-06-02 13:23 | Emergency (ER) | payer OTHER, MEDICARE ==
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
[2018-06-02 16:48] LABS: ABSOLUTE BASOPHILS # (AUTO) 0.1 10^3/uL (0.0-0.2); ABSOLUTE EOSINOPHILS # (AUTO) 0.3 10^3/uL (0.0-0.6); ABSOLUTE LYMPHOCYTES (AUTO) 2.7 10^3/uL (0.5-4.7); ABSOLUTE MONOCYTES (AUTO) 0.7 10^3/uL (0.1-1.4); ABSOLUTE NEUT (AUTO) 3.1 10^3/uL (1.7-8.2); BASOPHILS % (AUTO) 0.7 % (0-2); EOSINOPHILS % (AUTO) 3.8 % (0-6); HEMOGLOBIN 14.9 g/dL (13.5-17.0); LYMPHOCYTES % (AUTO) 39.9 % (13-45); MEAN CORPUSCULAR HEMOGLOBIN 32.1 pg (27.0-33.4); MEAN CORPUSCULAR HGB CONC 34.6 g/dL (32.0-36.0); MEAN CORPUSCULAR VOLUME 93 fl (80-97); MONOCYTES % (AUTO) 10.4 % (3-13); PLATELET COUNT 206 10^3/uL (150-450); RED BLOOD COUNT 4.64 10^6/uL (4.35-5.55); RED CELL DISTRIBUTION WIDTH 13.8 % (11.5-14.0); SEGMENTED NEUTROPHILS % (AUTO) 45.2 % (42-78); TOTAL CELLS COUNTED % (AUTO) 100 %; WHITE BLOOD COUNT 6.8 10^3/uL (4.0-10.5)
[2018-06-02 17:02] LABS: ANION GAP 7 (5-19); BLOOD UREA NITROGEN 30 mg/dL (7-20); CALCIUM 9.8 mg/dL (8.4-10.2); CARBON DIOXIDE 29 mmol/L (22-30); CHLORIDE 104 mmol/L (98-107); GLUCOSE 114 mg/dL (75-110); POTASSIUM 4.2 mmol/L (3.6-5.0); SODIUM 140.4 mmol/L (137-145)
[2018-06-02 17:10] LABS: APPEARANCE,URINE CLEAR; BILIRUBIN,URINE NEGATIVE (NEGATIVE); COLOR,URINE YELLOW; GLUCOSE, URINE NEGATIVE (NEGATIVE); KETONES,URINE NEGATIVE (NEGATIVE); LEUKOCYTE ESTERASE,URINE NEGATIVE (NEGATIVE); NITRITE,URINE NEGATIVE (NEGATIVE); PROTEIN,URINE NEGATIVE (NEGATIVE); URINE SPECIFIC GRAVITY 1.013; UROBILINOGEN,URINE NEGATIVE mg/dL (<2.0)
--- NOTE | 2018-06-02 19:31 | RADIOLOGY REPORT (SQ) ---
EXAM DESCRIPTION: CT HEAD WITHOUT COMPLETED DATE/TIME: 06/02/2018 6:57 pm REASON FOR STUDY: unsteady, shuffling gait COMPARISON: 09/18/2017 TECHNIQUE: Axial images acquired through the brain without intravenous contrast. Images reviewed wi th bone, brain and subdural windows. Additional sagittal and coronal reconstructions were generated. Images stored on PACS. All CT scanners at this facility use dose modulation, iterative reconstruction, and/or weight based d osing when appropriate to reduce radiation dose to as low as reasonably achievable (ALARA). [facility]: Dose Right [facility]: CareDose [facility]: Dose Right [facility]: Teradose 4D [facility]: Everything Club RADIATION DOSE: CT Rad equipment meets quality standard of care and radiation dose reduction techniq ues were employed. CTDIvol: 53.2 mGy. DLP: 1017 mGy-cm.mGy. LIMITATIONS: None. FINDINGS: VENTRICLES: Prominent. CEREBRUM: No masses. No hemorrhage. No midline shift. Hammer- white matter differentiation is mainta ined. No evidence of large territory ischemic injury. CEREBELLUM: No masses. No hemorrhage. No alteration of density. No evidence for acute infarction. EXTRAAXIAL SPACES: Age-related involutional change. No fluid collections. No masses. ORBITS AND GLOBE: No intra- or extraconal masses. Normal contour of globe without masses. CALVARIUM: No fracture. PARANASAL SINUSES: Left maxillary fluid level. The paranasal sinuses and mastoid air cells are other beverly clear. SOFT TISSUES: No mass or hematoma. OTHER: No other significant finding. IMPRESSION: Stable CT appearance of the brain. No evidence of acute large territory ischemic injury . Incidental finding of left maxillary sinusitis. EVIDENCE OF ACUTE STROKE: NO. TECHNICAL DOCUMENTATION: JOB ID: [id number] Quality ID # [id number]: Final reports with documentation of one or more dose reduction techniques (e.g., Au tomated exposure control, adjustment of the mA and/or kV according to patient size, use of iterative reconstruction technique) 2010 [employer]- All Rights Reserved Reading location - IP/workstation name: [email or web address]
--- NOTE | 2018-06-02 19:39 | RADIOLOGY REPORT (SQ) ---
EXAM DESCRIPTION: ABDOMEN 2 VIEWS COMPLETED DATE/TIME: 06/02/2018 7:12 pm REASON FOR STUDY: no BM x 3 months per patient COMPARISON: None. NUMBER OF VIEWS: Two views. TECHNIQUE: Supine and erect/decubitus radiographic images of the abdomen acquired. LIMITATIONS: None. FINDINGS: FREE AIR: None. No abnormal gas collections. LUNG BASES: Clear. BOWEL GAS PATTERN: Nonobstructive pattern. No dilated loops or air fluid levels. CALCIFICATIONS: Atherosclerotic vascular calcifications are demonstrated. SOFT TISSUES: No gross mass or suggestion of organomegaly. HARDWARE: None in the abdomen. BONES: Degenerative changes of the hips and spine. No acute findings. OTHER: No other significant finding. IMPRESSION: NO RADIOGRAPHIC EVIDENCE FOR ACUTE ABDOMINAL DISEASE. TECHNICAL DOCUMENTATION: JOB ID: [id number] [employer]- All Rights Reserved Reading location - IP/workstation name: [email or web address]
[2018-06-02 22:48] VITALS: BP 145/72
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
== END 2018-06-02 22:46 | disposition home health service (06) ==
LOC: ER 13:23
DX: R26.81 Unsteadiness on feet (principal); K59.00 Constipation, unspecified; R53.1 Weakness; J44.9 Chronic obstructive pulmonary disease, unspecified; E78.00 Pure hypercholesterolemia, unspecified; I10 Essential (primary) hypertension
CPT/HCPCS: 36415; 70450; 74019; 80048; 81001; 82550; 82553; 85025; 99285

== ENCOUNTER 2019-12-08 05:57 | Emergency (ER) | payer OTHER, MEDICARE ==
[2019-12-08 06:41] VITALS: BP 134/69
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
--- NOTE | 2019-12-08 07:29 | RADIOLOGY REPORT (SQ) ---
EXAM DESCRIPTION: XR ELBOW 3 VIEWS COMPLETED DATE/TME: 12/08/2019 06:21 CLINICAL HISTORY: 74 years, Male, fall, abrasion COMPARISON: None. FINDINGS: 3 views of the right elbow. No definite acute fracture or dislocation. No definite joint effusion. Normal osseous mineralization. Osteoarthritic change. IMPRESSION: 1. No fracture identified. Given degree of degenerative change, if the the patient continues to have pain follow-up radiographs may be helpful. copyright 2010 [employer]- All Rights Reserved
--- NOTE | 2019-12-08 08:02 | RADIOLOGY REPORT (SQ) ---
CT cervical spine without contrast on 12/08/2019 at 7:37 AM CLINICAL INDICATION: Fall, hematoma, per protocol for mechanism of injury TECHNIQUE: Multiple axial images are obtained throughout the cervical spine without the administration of contrast. Sagittal and coronal reformatted images are also performed and reviewed. This exam was performed according to our departmental dose-optimization program, which includes automated exposure control, adjustment of the mA and/or kV according to patient size and/or use of iterative reconstruction technique. Total DLP is 495.94 mGy*cm. COMPARISON: None FINDINGS: Diffuse degenerative disc disease is noted throughout the cervical spine. There is minimal grade 1 spondylolisthesis at C2-3 and C7-T1 secondary to degenerative facet disease. Degenerative facet disease is noted bilaterally throughout the cervical spine but worse on the left in the mid cervical spine. Reformatted images reveal otherwise normal alignment of the cervical spine. Bilateral carotid calcifications are noted. There are no acute fracture lines. There is no prevertebral soft tissue swelling. No definite disc herniation is noted. IMPRESSION: Diffuse degenerative changes with no acute abnormality.
--- NOTE | 2019-12-08 08:35 | RADIOLOGY REPORT (SQ) ---
EXAM DESCRIPTION: CT HEAD WITHOUT IMAGES COMPLETED DATE/TIME: 12/08/2019 7:54 am REASON FOR STUDY: fall, hematoma COMPARISON: CT head 06/02/2018 TECHNIQUE: Axial images acquired through the brain without intravenous contrast. Images reviewed wi th bone, brain and subdural windows. Images stored on PACS. All CT scanners at this facility use dose modulation, iterative reconstruction, and/or weight based d osing when appropriate to reduce radiation dose to as low as reasonably achievable (ALARA). [facility]: Dose Right [facility]: CareDose [facility]: Dose Right [facility]: Teradose 4D [facility]: Blink Messenger RADIATION DOSE: CT Rad equipment meets quality standard of care and radiation dose reduction techniq ues were employed. CTDIvol: 53.2 mGy. DLP: 1529 mGy-cm.mGy. LIMITATIONS: None. FINDINGS: VENTRICLES: Prominent. CEREBRUM: No masses. No hemorrhage. No midline shift. Areas of low density in the white matter mos t likely due to chronic micro-vascular ischemic change. No evidence for acute infarction. CEREBELLUM: No masses. No hemorrhage. No alteration of density. No evidence for acute infarction. EXTRAAXIAL SPACES: Age-related involutional change. No fluid collections. No masses. ORBITS AND GLOBE: No intra- or extraconal masses. Normal contour of globe without masses. CALVARIUM: No fracture. PARANASAL SINUSES: No fluid or mucosal thickening. SOFT TISSUES: No mass or hematoma. OTHER: No other significant finding. IMPRESSION: CHRONIC CHANGES OF ATROPHY AND MICROVASCULAR ISCHEMIA. NO ACUTE PROCESS. EVIDENCE OF ACUTE STROKE: NO. TECHNICAL DOCUMENTATION: JOB ID: [id number] Quality ID # [id number]: Final reports with documentation of one or more dose reduction techniques (e.g., Au tomated exposure control, adjustment of the mA and/or kV according to patient size, use of iterative reconstruction technique) 2010 [employer]- All Rights Reserved Reading location - IP/workstation name: [email or web address]
== END 2019-12-08 10:10 | disposition home or self-care (01) ==
LOC: ER 05:57
DX: S00.81XA Abrasion of other part of head, initial encounter (principal); S00.83XA Contusion of other part of head, initial encounter; S50.311A Abrasion of right elbow, initial encounter; W01.0XXA Fall on same level from slipping, tripping and stumbling without subsequent striking against object, initial encounter; Y92.129 Unspecified place in nursing home as the place of occurrence of the external cause; Z79.01 Long term (current) use of anticoagulants; F17.200 Nicotine dependence, unspecified, uncomplicated; E78.00 Pure hypercholesterolemia, unspecified; I10 Essential (primary) hypertension
CPT/HCPCS: 70450; 72125; 99285

== ENCOUNTER 2020-02-03 17:46 | Emergency (ER) | payer OTHER, MEDICARE ==
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
[2020-02-03 21:04] LABS: ABSOLUTE EOSINOPHILS # (AUTO) 0.2 10^3/uL (0.0-0.6); ABSOLUTE LYMPHOCYTES (AUTO) 1.7 10^3/uL (0.5-4.7); ABSOLUTE MONOCYTES (AUTO) 0.7 10^3/uL (0.1-1.4); ABSOLUTE NEUT (AUTO) 3.4 10^3/uL (1.7-8.2); BASOPHILS % (AUTO) 0.7 % (0-2); HEMATOCRIT 19.5 % (37.9-51.0); LYMPHOCYTES % (AUTO) 28.1 % (13-45); MEAN CORPUSCULAR HEMOGLOBIN 33.2 pg (27.0-33.4); MEAN CORPUSCULAR VOLUME 98 fl (80-97); MONOCYTES % (AUTO) 11.6 % (3-13); PLATELET COUNT 151 10^3/uL (150-450); RED CELL DISTRIBUTION WIDTH 14.8 % (11.5-14.0); SEGMENTED NEUTROPHILS % (AUTO) 55.6 % (42-78); TOTAL CELLS COUNTED % (AUTO) 100 %; WHITE BLOOD COUNT 6.2 10^3/uL (4.0-10.5)
[2020-02-03 21:14] LABS: APPEARANCE,URINE CLEAR; BILIRUBIN,URINE NEGATIVE (NEGATIVE); COLOR,URINE YELLOW; GLUCOSE, URINE NEGATIVE (NEGATIVE); KETONES,URINE NEGATIVE (NEGATIVE); LEUKOCYTE ESTERASE,URINE NEGATIVE (NEGATIVE); NITRITE,URINE NEGATIVE (NEGATIVE); PROTEIN,URINE NEGATIVE (NEGATIVE); URINE SPECIFIC GRAVITY 1.021
[2020-02-03 21:16] LABS: ALBUMIN 3.5 g/dL (3.5-5.0); ALKALINE PHOSPHATASE 73 U/L (38-126); ASPARTATE AMINO TRANSFERASE 31 U/L (17-59); BILIRUBIN,DIRECT 0.1 mg/dL (0.0-0.4); BILIRUBIN,TOTAL 1.3 mg/dL (0.2-1.3); BLOOD UREA NITROGEN 29 mg/dL (7-20); GLUCOSE 90 mg/dL (75-110); POTASSIUM 3.8 mmol/L (3.6-5.0)
[2020-02-03 21:21] LABS: CARBON DIOXIDE 28 mmol/L (22-30); CHLORIDE 106 mmol/L (98-107)
[2020-02-03 21:23] LABS: ANION GAP 6 (5-19)
--- NOTE | 2020-02-03 21:39 | RADIOLOGY REPORT (SQ) ---
XR left KNEE 4 OR MORE VIEWS CLINICAL STATEMENT: fall, contusion FINDINGS: Bony alignment is anatomic. There is no fracture or dislocation. The soft tissues are unremarkable. No significant suprapatellar joint effusion. IMPRESSION: No fracture.
--- NOTE | 2020-02-03 21:40 | RADIOLOGY REPORT (SQ) ---
XR ELBOW 3 VIEWS CLINICAL STATEMENT: fall, contusion COMPARISON: None FINDINGS: Bony alignment is anatomic. There is no fracture or dislocation. The soft tissues are unremarkable. Moderate degenerative changes of the elbow which slightly limits evaluation for fracture. Mild joint effusion is noted. IMPRESSION: No evidence for acute fracture. Moderate degenerative changes.
[2020-02-03 21:48] LABS: HEMOGLOBIN 6.6 g/dL (13.5-17.0)
[2020-02-03] MEDS ORDERED: NORMAL SALINE 250 ML IV PRN ×2 (21:57)
[2020-02-03] MEDS ORDERED: LORAZEPAM INJ 2 MG/1 ML VIAL IV ONE (22:10)
[2020-02-03 22:29] LABS: INTERNATIONAL RATION (INR) 1.79; PROTHROMBIN TIME 20.9 SEC (11.4-15.4)
--- NOTE | 2020-02-03 22:55 | RADIOLOGY REPORT (SQ) ---
EXAM DESCRIPTION: Site: CT HEAD WITHOUT RP: CT HEAD WITHOUT IV CONTRAST CLINICAL HISTORY: 74 years Male; fall/trauma; TECHNIQUE: Noncontrast CT head. All CT scans at this facility use dose modulation, iterative reconstruction, and/or weight based dosing when appropriate to reduce radiation dose to as low as reasonably achievable. COMPARISON: 12/08/2019 FINDINGS: Brain: Cerebral atrophy is similar prior exam. No acute hemorrhage or mass effect. Sinuses: Visualized portions of paranasal sinuses and mastoids are clear. Calvarium: No acute calvarial fractures or focal lesion. IMPRESSION: 1. No acute intracranial findings. 2. Cerebral atrophy as on prior exam
--- NOTE | 2020-02-03 23:02 | RADIOLOGY REPORT (SQ) ---
EXAM DESCRIPTION: CT CERVICAL SPINE WITHOUT IV CONTRAST COMPLETED DATE/TME: 02/03/2020 22:37 CLINICAL HISTORY: 74 years, Male, fall/trauma COMPARISON: December 08, 2019 TECHNIQUE: Axial, coronal, and sagittal images of the cervical spine were obtained. Images stored on PACS. All CT scanners at this facility use dose modulation, iterative reconstruction, and/or weight based dosing when appropriate to reduce radiation dose to as low as reasonably achievable (ALARA). [facility]: Dose Right [facility]: CareDose [facility]: Dose Right [facility]: Teradose 4D [facility]: RealScout LIMITATIONS: Mild motion artifact. FINDINGS: There is no evidence of cervical spine fracture. There is mild anterior subluxation of C2 on C3 and C7 on T1, stable and likely degenerative in etiology. Advanced multilevel degenerative changes are again identified as before. There is no apical pneumothorax. There is mild dilation of the visualized esophagus with some retained ingested material. Correlation for history of dysphagia is suggested. Incidental thyroid nodularity measuring up to 1.5 cm is noted and previously evaluated with ultrasound. IMPRESSION: No acute abnormality is seen. There is partial visualization of esophageal dilation with retained ingested material. Correlation for dysphagia is suggested. This could be further evaluated with barium study as clinically directed. TECHNICAL DOCUMENTATION: Quality ID # [id number]: Final reports with documentation of one or more dose reduction techniques (e.g., Automated exposure control, adjustment of the mA and/or kV according to patient size, use of iterative reconstruction technique) copyright 2011 [employer]- All Rights Reserved
--- NOTE | 2020-02-03 23:05 | RADIOLOGY REPORT (SQ) ---
EXAM DESCRIPTION: CT ABDOMEN PELVIS WITH IV CONTRAST, CT CHEST WITH IV CONTRAST COMPLETED DATE/TME: 02/03/2020 22:37 CLINICAL HISTORY: 74 years, Male, Ecchymosis to L abdomen, L hip, groin, flank This exam was performed according to our departmental dose-optimization program which includes automated exposure control, adjustment of the mA and/or kVp according to patient size and/or use of iterative reconstruction technique where applicable. FINDINGS: Aorta is mildly calcified without aneurysm. No significant mediastinal, hilar or axillary lymphadenopathy. No pleural or pericardial effusions. The lungs are clear. No consolidations to suggest pneumonia. Liver, spleen, pancreas,, adrenal glands are within normal limits. Mild right renal 2.7 cm cyst. No hydronephrosis. No dilated loops of bowel to suggest obstruction. No free fluid or free air. Moderate amount stool in the colon. No abdominal or pelvic lymphadenopathy. Abdominal aorta moderately calcified with 4.8 cm infrarenal fusiform aneurysm. Bladder is unremarkable. The ribs are intact. Scapula is intact. Pelvic bones are intact. Thoracic and lumbar spine vertebral body heights are intact. Moderate changes of the lumbar spine. Sternum is intact. IMPRESSION: No suspicious acute traumatic findings. 4.8 cm abdominal aortic aneurysm, needs vascular surgery follow-up and six-month imaging follow-up.
[2020-02-04 06:28] LABS: HEMATOCRIT 23.9 % (37.9-51.0); HEMOGLOBIN 8.2 g/dL (13.5-17.0); MEAN CORPUSCULAR HEMOGLOBIN 32.8 pg (27.0-33.4); MEAN CORPUSCULAR HGB CONC 34.4 g/dL (32.0-36.0); MEAN CORPUSCULAR VOLUME 95 fl (80-97); PLATELET COUNT 137 10^3/uL (150-450); RED BLOOD COUNT 2.51 10^6/uL (4.35-5.55); RED CELL DISTRIBUTION WIDTH 16.5 % (11.5-14.0); WHITE BLOOD COUNT 6.2 10^3/uL (4.0-10.5)
[2020-02-04 07:42] VITALS: BP 137/77
== END 2020-02-04 08:24 | disposition home or self-care (01) ==
LOC: ER 17:46
DX: S80.212A Abrasion, left knee, initial encounter (principal); S50.311A Abrasion of right elbow, initial encounter; S50.01XA Contusion of right elbow, initial encounter; S30.1XXA Contusion of abdominal wall, initial encounter; S70.02XA Contusion of left hip, initial encounter; S30.0XXA Contusion of lower back and pelvis, initial encounter; S70.12XA Contusion of left thigh, initial encounter; W19.XXXA Unspecified fall, initial encounter; Y92.129 Unspecified place in nursing home as the place of occurrence of the external cause; R51.9 Headache, unspecified; D64.9 Anemia, unspecified; I71.4 Abdominal aortic aneurysm, without rupture; K22.8 Other specified diseases of esophagus; G31.9 Degenerative disease of nervous system, unspecified; I10 Essential (primary) hypertension; J44.9 Chronic obstructive pulmonary disease, unspecified; F60.1 Schizoid personality disorder; Z79.899 Other long term (current) drug therapy; Z79.01 Long term (current) use of anticoagulants; Z87.81 Personal history of (healed) traumatic fracture
CPT/HCPCS: 99285; 96374; 86900; 86901; 36415; 36430; 86850; 85025; 85027; 85610; 85730; 82270; 80053; 81001; 86920; 73080; 73564; 70450; 71260; 72125; 74177; P9016; J2060

== ENCOUNTER → 2020-02-06 | Outpatient (CLI) | payer OTHER, MEDICARE ==
[2020-02-06 11:13] LABS: HEMATOCRIT 29.7 % (37.9-51.0); HEMOGLOBIN 10.2 g/dL (13.5-17.0); MEAN CORPUSCULAR HEMOGLOBIN 33.1 pg (27.0-33.4); MEAN CORPUSCULAR HGB CONC 34.3 g/dL (32.0-36.0); MEAN CORPUSCULAR VOLUME 96 fl (80-97); PLATELET COUNT 179 10^3/uL (150-450); RED BLOOD COUNT 3.09 10^6/uL (4.35-5.55); RED CELL DISTRIBUTION WIDTH 16.9 % (11.5-14.0); WHITE BLOOD COUNT 5.2 10^3/uL (4.0-10.5)
[2020-02-06 11:38] LABS: ALBUMIN 3.7 g/dL (3.5-5.0); ALKALINE PHOSPHATASE 78 U/L (38-126); ANION GAP 5 (5-19); ASPARTATE AMINO TRANSFERASE 48 U/L (17-59); BILIRUBIN,DIRECT 0.4 mg/dL (0.0-0.4); BILIRUBIN,TOTAL 1.9 mg/dL (0.2-1.3); BLOOD UREA NITROGEN 28 mg/dL (7-20); CALCIUM 9.2 mg/dL (8.4-10.2); CARBON DIOXIDE 29 mmol/L (22-30); CHLORIDE 106 mmol/L (98-107); GLUCOSE 90 mg/dL (75-110); POTASSIUM 3.8 mmol/L (3.6-5.0); TOTAL PROTEIN 6.5 g/dL (6.3-8.2)
[2020-02-06 15:41] LABS: APPEARANCE,URINE SLIGHTLY-CLOUDY; BILIRUBIN,URINE NEGATIVE (NEGATIVE); CALCIUM OXALATE CRYSTALS,URINE MODERATE /HPF; COLOR,URINE AMBER; GLUCOSE, URINE NEGATIVE (NEGATIVE); KETONES,URINE NEGATIVE (NEGATIVE); LEUKOCYTE ESTERASE,URINE NEGATIVE (NEGATIVE); NITRITE,URINE NEGATIVE (NEGATIVE); PROTEIN,URINE 30 mg/dL (NEGATIVE); URINE SPECIFIC GRAVITY 1.029
== END ==
LOC: OD 10:02
PROVIDERS: ATTEND Family Medicine
DX: N39.0 Urinary tract infection, site not specified (principal); D64.9 Anemia, unspecified; R79.89 Other specified abnormal findings of blood chemistry
CPT/HCPCS: 36415; 80053; 81001; 85027